=== PATIENT | female | born 1950 | race Caucasian/White ===

== ENCOUNTER 2017-03-11 00:21 | Inpatient (IN) | payer MEDICARE, BC ==
[~2017-03-11] VITALS: Ht 172.7 cm; Wt 116.9 kg
[2017-03-11] VITALS (7 sets, daily range): BP systolic 114–168; BP diastolic 64–101; PULSE 85–105; RESP 18–30; TEMP 96.2–98.2; O2SAT 84–98
[2017-03-11] MEDS ORDERED: RESP: ALBUTEROL 2.5 MG/IPRATROPIUM 0.5 MG NEB (PRN) ONE (00:27)
[2017-03-11] MEDS ORDERED: SODIUM CHLORIDE 0.9% FLUSH 10 ML FLUSH IVF PRN (00:30)
[2017-03-11] MEDS ORDERED: methylPREDNISolone SOD SUCC 125 MG/2 ML VIAL IVP ONE (00:30)
[2017-03-11 00:40] LABS: BLOOD GAS BASE EXCESS 3.4 mmol/L (-2-2); BLOOD GAS CARBOXYHEMOGLOBIN 2.1 % (0-4); BLOOD GAS HCO3 27 mmol/L (22-26); BLOOD GAS METHEMOGLOBIN 0.7 % (0-2); BLOOD GAS O2 HGB SATURATION 94 % (90-100); BLOOD GAS OXYGEN CONTENT 18.7 Vol % (12.0-20.0); BLOOD GAS PCO2 41 mmHg (38-42); BLOOD GAS PO2 85 mmHG (61-120); BLOOD GAS TOTAL HGB 14.1 G/DL (12.0-16.0); CRITICAL VALUE NO; TEMP CORR TO 98.6
[2017-03-11 00:41] LABS: DRAW SITE RT RADIAL; FIO2 100 %; LITER FLOW 15 L/M; NUMBER OF ARTERIAL PUNCTURES 1; OXYGEN DEVICE NRB; STAT YES; ULNAR PULSE PRESENT
[2017-03-11] MEDS ORDERED: MORPHINE SULFATE 4 MG/ML INJ IV PUSH ONE (00:45)
[2017-03-11] MEDS ORDERED: ONDANSETRON HCL 4 MG/2 ML VIAL IV PUSH ONE (00:45)
[2017-03-11] MEDS: RESP: ALBUTEROL 2.5 MG/IPRATROPIUM 0.5 MG NEB (SCH) INH ×2 (00:45→00:46)
[2017-03-11 00:53] LABS: I-STAT POTASSIUM 3.2 MMOL/L (3.5-4.9)
[2017-03-11 01:03] LABS: HEMATOCRIT 39.9 % (35.0-46.0); MEAN CELL VOLUME 91.9 FL (80.0-100.0); MEAN CORPUSCULAR HEMOGLOBIN 32.2 PG (27.0-34.0); PLATELET COUNT 224 TH/MM3 (150-450); PROTHROMBIN TIME - PATIENT 10.7 SEC (9.8-11.6); RED BLOOD COUNT 4.34 MIL/MM3 (4.00-5.30); RED CELL DISTRIBUTION WIDTH 13.6 % (11.6-17.2); WHITE BLOOD COUNT 15.8 TH/MM3 (4.0-11.0)
[2017-03-11 01:13] LABS: ALKALINE PHOSPHATASE 280 U/L (45-117)
[2017-03-11 01:14] LABS: HEMO FLAGS AUTO DIFF
--- NOTE | 2017-03-11 01:14 | RADRPT ---
EXAM DATE/TIME: 03/11/2017 00:41 [facility] COMPARISON: No previous studies available for comparison. INDICATIONS : Shortness of breath with heavy chest pain. MEDICAL HISTORY : None. SURGICAL HISTORY : None. ENCOUNTER: Initial ACUITY: 1 day PAIN SCORE: 9/10 LOCATION: Bilateral chest FINDINGS: A single view of the chest demonstrates the lungs to be symmetrically aerated without evidence of mas s, infiltrate or effusion. The cardiomediastinal contours are unremarkable. Osseous structures are intact. CONCLUSION: No acute disease. Santi Man MD on March 11, 2017 at 1:12 Board Certified Radiologist. This report was verified electronically.
[2017-03-11 01:19] LABS: CREATINE KINASE 100 U/L (26-192)
[2017-03-11 01:25] LABS: ALT (GPT) 216 U/L (10-53); ANION GAP 12 MEQ/L (5-15); AST (GOT) 242 U/L (15-37); BICARBONATE 25.2 MEQ/L (21.0-32.0); BLOOD UREA NITROGEN 11 MG/DL (7-18); CHLORIDE 102 MEQ/L (98-107); GLOMERULAR FILTRATION RATE 47 ML/MIN (>89); SODIUM (NA) 139 MEQ/L (136-145)
[2017-03-11] MEDS ORDERED: IOHEXOL 350 MG/ML 10 ML VIAL (for RAD DIAG) IV ONE (01:25)
[2017-03-11 01:31] LABS: POTASSIUM 3.3 MEQ/L (3.5-5.1)
--- NOTE | 2017-03-11 01:43 | RADRPT ---
EXAM DATE/TIME: 03/11/2017 01:19 [facility] COMPARISON: No previous studies available for comparison. INDICATIONS : Chest pain and shortness of breath. IV CONTRAST: 75 cc Omnipaque 350 (iohexol) IV RADIATION DOSE: 24.87 CTDIvol (mGy) MEDICAL HISTORY : Cardiovascular disease. Chronic obstructive pulmonary disease. SURGICAL HISTORY : None. ENCOUNTER: Initial ACUITY: 1 day PAIN SCALE: 0/10 LOCATION: chest TECHNIQUE: Volumetric scanning of the chest was performed using a pulmonary embolism protocol MIP images were re constructed. Using automated exposure control and adjustment of the mA and/or kV according to patien t size, radiation dose was kept as low as reasonably achievable to obtain optimal diagnostic quality images. DICOM format image data is available electronically for review and comparison. FINDINGS: PULMONARY ARTERIES: No filling defects are seen in the pulmonary arteries through the segmental level. LUNGS: There is no consolidation or pneumothorax . Peribronchial thickening and scattered densities in the l ower lobes greater the left. No concerning pulmonary nodule is visualized. PLEURAE: There is no pleural thickening or pleural effusion. MEDIASTINUM: There is good visualization of the great vessels of the middle mediastinum. Borderline prominent lymp h node in the right precarinal region measures 1.4 cm in short axis. MUSCULOSKELETAL: Within normal limits for patient age. MISCELLANEOUS: The visualized upper abdominal organs demonstrate no acute abnormality. CONCLUSION: 1. No evidence for pulmonary embolism. 2. Peribronchial thickening and scattered densities in lower lobes greater in the left lower lobe lik chele infectious. 3. Borderline prominent lymph node in the right precarinal region measures 1.4 cm in short axis. Santi Man MD on March 11, 2017 at 1:38 Board Certified Radiologist. This report was verified electronically.
[2017-03-11 01:57] LABS: BANDS 13 % (0-6); NEUTROPHIL # MANUAL DIFF 14.9 TH/MM3 (1.8-7.7); PLATELET ESTIMATE SMEAR NORMAL (NORMAL); PLATELET MORPHOLOGY NORMAL (NORMAL); POLYS (SEG NEUTROPHILS) 81 % (16-70); SCAN/DIFF FINAL DIFF MANUAL; WBC DIFF SAMPLE 100
[2017-03-11] MEDS ORDERED: ALBU6.7H INH (02:01)
[2017-03-11] MEDS ORDERED: BUME1TAB PO (02:01)
[2017-03-11] MEDS ORDERED: ERGO2000 PO (02:01)
[2017-03-11] MEDS ORDERED: VENTAER INH (02:01)
[2017-03-11] MEDS ORDERED: PANT40TA3 PO (02:01)
[2017-03-11] MEDS ORDERED: TIOT12.9 INH (02:01)
[2017-03-11] MEDS ORDERED: PIPERACIL-TAZO 4.5 GM PREMIX 100 ML IV ONE (02:15)
[2017-03-11] MEDS ORDERED: SODIUM CHLORIDE 0.9% FLUSH 10 ML FLUSH IV FLUSH PRN (02:45)
[2017-03-11] MEDS ORDERED: LACTULOSE SYRUP 20 GM/30 ML CUP PO PRN (02:45)
[2017-03-11] MEDS ORDERED: RESP: ALBUTEROL 2.5 MG/IPRATROPIUM 0.5 MG NEB (PRN) NEB (02:45)
[2017-03-11] MEDS ORDERED: Vancomycin Consult Pharmacy 1 EA OTHER SCH (02:45)
[2017-03-11] MEDS ORDERED: MAGNESIUM HYDROXIDE SUSP 30 ML CUP PO PRN (02:45)
[2017-03-11] MEDS ORDERED: POTASSIUM CHLORIDE 20 MEQ CONTROLLED RELEASE TAB PO ONE (02:45)
[2017-03-11] MEDS ORDERED: BISACODYL 10 MG SUPP RECTAL PRN (02:45)
[2017-03-11] MEDS ORDERED: MORPHINE SULFATE 4 MG/ML INJ IV PRN (02:45)
[2017-03-11] MEDS ORDERED: SENNOSIDES 8.6 MG TAB PO PRN (02:45)
[2017-03-11] MEDS ORDERED: ONDANSETRON HCL 4 MG/2 ML VIAL IVP PRN (02:45)
--- NOTE | 2017-03-11 03:04 | PD ---
HPI Chief Complaint: Respiratory Distress Time Seen by Provider: 00:24 Travel History International Travel<30 days: No Contact w/Intl Traveler<30days: No Traveled to known affect area: No History of Present Illness HPI 67-year-old female came to the emergency room with history of severe shortness of breath and hypoxia. She was brought in emergently from triage. is here with her who is giving the history. They're from [place] and they came to visit in this area. The drove for 11 hours and they reached here last Monday. Since then patient has been having some epigastric pain and shortness of breath. Today she has also been complaining of severe right upper quadrant pain along with this shortness of breath. She says the pain is worse when she takes a deep breath. also told me that she was admitted in [place] about 6 weeks ago for gallbladder stone. She did not have to take her gallbladder out but they did take the stone out. Patient appeared in severe distress. FORMERLY [facility], [facility] Past Medical History Narrative Medical List of her past medical, surgical, social and family history is reviewed from the nursing note. Asthma: Yes Cardiovascular Problems: Yes Congestive Heart Failure: Yes COPD: Yes Respiratory: Yes Immunizations Current: Yes Tetanus Vaccination: Unknown Past Surgical History Appendectomy: Yes Tonsillectomy: Yes Social History Alcohol Use: Yes Tobacco Use: No Substance Use: No Allergies-Medications (Allergen,Severity, Reaction): Coded Allergies: No Known Allergies (Unverified , 03/11/17) Comments No known drug allergies. Reported Meds & Prescriptions Reported Meds & Active Scripts Active Reported Ventolin Hfa 18 GM Inh (Albuterol Sulfate) 90 Mcg/Act Aer 2 Puff INH Q4-6H PRN Proventil Hfa 6.7 GM Inh (Albuterol Sulfate) 90 Mcg/Act Aer 2 Puff INH Q4-6H PRN Spiriva Respimat Inh (Tiotropium Inh) 2.5 Mcg/Act Aero 2 Puff INH DAILY 2.5 mcg = 1 inhalation Bumetanide 1 Mg Tab 1 Mg PO DAILY Vitamin D2 (Ergocalciferol) 2,000 Unit Tab 50,000 Units PO WEEKLY Pantoprazole (Pantoprazole Sodium) 40 Mg Tab 40 Mg PO DAILY Narrative Medication List of her home medications reviewed from the nursing note. Review of Systems Except as stated in HPI: all other systems reviewed are Neg Physical Exam Narrative GENERAL: Awake, alert, obese, severe distress SKIN: Focused skin assessment warm/dry. HEAD: Atraumatic. Normocephalic. EYES: Pupils equal and round. No scleral icterus. No injection or drainage. ENT: No nasal bleeding or discharge. Mucous membranes pink and moist. NECK: Trachea midline. No JVD. CARDIOVASCULAR: Regular rate and rhythm. No murmur appreciated. RESPIRATORY: Tachypnea, accessory muscles use for respiration, decreased air entry bilaterally GASTROINTESTINAL: Abdomen soft, non-tender, nondistended. Hepatic and splenic margins not palpable. MUSCULOSKELETAL: No obvious deformities. No clubbing. No cyanosis. No edema. NEUROLOGICAL: Awake and alert. No obvious cranial nerve deficits. Motor grossly within normal limits. Normal speech. PSYCHIATRIC: Appropriate mood and affect; insight and judgment normal. Data Data Last Documented VS Orders Complete Blood Count With Diff (03/11/17 00:24) Comprehensive Metabolic Panel (03/11/17:24) B-Type Natriuretic Peptide (03/11/17:24) Prothrombin Time / Inr (Pt) (03/11/17 00:24) Ckmb (Isoenzyme) Profile (03/11/17 00:24) Troponin I (03/11/17:24) Arterial Blood Gas (Abg) (03/11/17:24) Iv Access Insert/Monitor (03/11/17 00:24) Electrocardiogram (03/11/17 00:24) Ecg Monitoring (03/11/17 00:24) Oximetry (03/11/17:24) Oxygen Administration (03/11/17 00:24) Chest, Single Ap (03/11/17 00:24) Sodium Chloride 0.9% Flush (Ns Flush) (03/11/17 00:30) Methylprednisolone So Succ Inj (Solumedr (03/11/17 00:30) Albuterol-Ipratropium Neb (Duoneb Neb) (03/11/17 00:30) Albuterol-Ipratropium Neb (Duoneb Neb) (03/11/17 00:27) Ct Pulmonary Angiogram (03/11/17 ) Morphine Inj (Morphine Inj) (03/11/17 00:45) Ondansetron Inj (Zofran Inj) (03/11/17 00:45) I-Stat Creatinine (03/11/17 00:43) I-Stat Profile (03/11/17 00:38) Iohexol 350 Inj (Omnipaque 350 Inj) (03/11/17 01:25) Piperacil-Tazo 4.5 Gm Premix (Zosyn 4.5 (03/11/17 02:15) Blood Culture (03/11/17 02:03) Lactic Acid (03/11/17 02:03) Vancomycin Consult Pharmacy (Vancomycin (03/11/17 02:45) Albuterol-Ipratropium Neb (Duoneb Neb) (03/11/17 02:45) Budeson-Formot 160-4.5 Mg Inh (Symbicort (03/11/17 09:00) Admit To Inpatient (03/11/17 ) Vital Signs (Adult) Q4H (03/11/17 02:42) Activity Oob With Assistance (03/11/17 02:42) Intake + Output RICARDO.QSHIFT (03/11/17 02:42) Diet Regular Basic (03/11/17 Breakfast) Sodium Chlor 0.9% 1000 Ml Inj (Ns 1000 M (03/11/17 02:42) Sodium Chloride 0.9% Flush (Ns Flush) (03/11/17 02:45) Sodium Chloride 0.9% Flush (Ns Flush) (03/11/17 09:00) Ondansetron Inj (Zofran Inj) (03/11/17 02:45) Comprehensive Metabolic Panel (03/12/17 06:00) Complete Blood Count With Diff (03/12/17 06:00) Scd Bilateral/Knee High RICARDO.BID (03/11/17 02:42) [place]mar Bilateral/Knee High RICARDO.QSHIFT (03/11/17 02:42) Morphine Inj (Morphine Inj) (03/11/17 02:45) Oxycodone (Roxicodone) (03/11/17 02:45) Docusate Sodium-Senna (Yanni-Colace) (03/11/17 09:00) Magnesium Hydroxide Liq (Milk Of Magnesi (03/11/17 02:45) Sennosides (Senokot) (03/11/17 02:45) Bisacodyl Supp (Dulcolax Supp) (03/11/17 02:45) Lactulose Liq (Lactulose Liq) (03/11/17 02:45) Inpatient Certification (03/11/17 ) Potassium Chloride (Kcl) (03/11/17 02:45) Piperacil-Tazo 3.375 Gm Premix (Zosyn 3. (03/11/17 08:00) Mri Mrcp W/O Contrast (03/11/17 ) Admit Order (Ed Use Only) (03/11/17 02:47) Labs Laboratory Tests Test 03/11/17 03/11/17 03/11/17 03/11/17 00:24 00:30 00:38 02:18 Blood Gas Puncture Site RT RADIAL Blood Gas Patient Temperature 98.6 Blood Gas HCO3 27 mmol/L Blood Gas Base Excess 3.4 mmol/L Blood Gas Oxygen Saturation 94 % Arterial Blood pH 7.44 Arterial Blood Partial 41 mmHg Pressure CO2 Arterial Blood Partial 85 mmHG Pressure O2 Arterial Blood Oxygen Content 18.7 Vol % Arterial Blood 2.1 % Carboxyhemoglobin Arterial Blood Methemoglobin 0.7 % Blood Gas Hemoglobin 14.1 G/DL Oxygen Delivery Device NRB Blood Gas Liter Flow 15 L/M Blood Gas Inspired Oxygen 100 % Sodium Level 139 MEQ/L Potassium Level 3.3 MEQ/L Chloride Level 102 MEQ/L Carbon Dioxide Level 25.2 MEQ/L Anion Gap 12 MEQ/L Blood Urea Nitrogen 11 MG/DL Creatinine 1.16 MG/DL Estimat Glomerular Filtration 47 ML/MIN Rate Random Glucose 158 MG/DL Calcium Level 9.7 MG/DL Total Bilirubin 4.0 MG/DL Aspartate Amino Transf 242 U/L (AST/SGOT) Alanine Aminotransferase 216 U/L (ALT/SGPT) Alkaline Phosphatase 280 U/L Total Creatine Kinase 100 U/L Troponin I LESS THAN 0.02 NG/ML Total Protein 7.7 GM/DL Albumin 3.6 GM/DL White Blood Count 15.8 TH/MM3 Red Blood Count 4.34 MIL/MM3 Hemoglobin 14.0 GM/DL Bedside Hemoglobin 13.6 G/DL Hematocrit 39.9 % Bedside Hematocrit 40.0 % Mean Corpuscular Volume 91.9 FL Mean Corpuscular Hemoglobin 32.2 PG Mean Corpuscular Hemoglobin 35.0 % Concent Red Cell Distribution Width 13.6 % Platelet Count 224 TH/MM3 Mean Platelet Volume 7.6 FL Neutrophils (%) (Auto) % Lymphocytes (%) (Auto) % Monocytes (%) (Auto) % Eosinophils (%) (Auto) % Basophils (%) (Auto) % Neutrophils # (Auto) TH/MM3 Lymphocytes # (Auto) TH/MM3 Monocytes # (Auto) TH/MM3 Eosinophils # (Auto) TH/MM3 Basophils # (Auto) TH/MM3 CBC Comment AUTO DIFF Differential Total Cells 100 Counted Neutrophils % (Manual) 81 % Band Neutrophils % 13 % Lymphocytes % 3 % Monocytes % 3 % Neutrophils # (Manual) 14.9 TH/MM3 Differential Comment FINAL DIFF MANUAL Platelet Estimate NORMAL Platelet Morphology Comment NORMAL Prothrombin Time 10.7 SEC Prothromb Time International 1.0 RATIO Ratio Bedside Sodium 138 MMOL/L Bedside Potassium 3.2 MMOL/L Bedside Chloride 100 MMOL/L Bedside Blood Urea Nitrogen 11 MG/DL Bedside Creatinine 1.0 MG/DL Bedside Glucose 169 MG/DL B-Type Natriuretic Peptide 33 PG/ML Lactic Acid Level 1.9 mmol/L [facility] Medical Decision Making Medical Screen Exam Complete: Yes Emergency Medical Condition: Yes Medical Record Reviewed: Yes Interpretation(s) Twelve-lead EKG was reviewed by me. Normal sinus rhythm, normal axis, nonspecific ST-T wave changes. Heart rate of 88 bpm. Differential Diagnosis PE, ACS, non-STEMI, acute cholecystitis Narrative Course 2:53 AM patient was given 3 duo nebs [id number] given her history of COPD. Blood gas was done and showed some hypoxia but otherwise within normal limits. The respiratory distress improved significantly. Given her recent past history of travel for many hours my concern was PE given the hypoxia and the pleuritic chest pain. CT pulmonary angiogram was ordered which came back negative read by the radiologist for PE. However her blood test results came back and she has leukocytosis with significant bandemia and elevated LFTs. Given all these findings my suspicion is for ascending cholangitis and I ordered an MRCP as well as I have started her on Zosyn and discussed the case with DEN Eldridge. GI was okay with that plan. They wanted the patient to be admitted to medical service. Currently patient is on a nasal cannula and her respiratory effort is much improved. Oxygen saturation is much better. I'm comfortable admitting her to the regular med surge floor. I discussed the case with the hospitalist was accepted it. Awaiting for the MRCP. Lactic acid came back and within normal range. Critical Care Narrative Aggregate critical care time was 60 minutes. Time to perform other separately billable procedures was not included in the critical care time. My time did not include minutes spent treating any other patients simultaneously or on activities that did not directly contribute to the patient's treatment. The services I provided to this patient were to treat and/or prevent clinically significant deterioration that could result in: Respiratory distress, hypoxia, acute COPD exacerbation, ascending cholangitis, sepsis I provided critical care services requiring my management, as noted below: Chart data review, documentation time, medication orders and management, vital sign assessments/reviewing monitor data, ordering and reviewing lab tests, ordering and interpreting/reviewing x-rays and diagnostic studies, care of the patient and discussion of the patient with the admitting physicians. Procedures EKG Prior to Arrival: No Physician Communication Physician Communication Dr. Radford, Diagnosis Primary Impression: Sepsis Qualified Code: A41.9 - Sepsis, due to unspecified organism Additional Impressions: Ascending cholangitis Respiratory distress Acute exacerbation of chronic obstructive pulmonary disease (COPD) Hypoxia Admitting Information Admitting Physician Requests: Admit Scripts Oxygen tank 1 Ea Tank #2 Liter [email or web address].[email or web address] Continuous Oxygen Concentrator Portable Gaseous 2 L/min via Nasal Cannula Continuous For 99 months Prov:Blayne Yao MD 03/13/17 Metronidazole (Flagyl)500 Mg [id number] Mg PO TID 10 Days Ref 0 Prov:Blayne Yao MD 03/13/17 Levofloxacin (Levaquin)500 Mg [id number] Mg PO DAILY 10 Days Ref 0 Prov:Blayne Yao MD 03/13/17 Prednisone 5 Mg Tab5 Mg PO DIRECTED 10 Days Ref 0 40 mg po daily for two days then 30 mg po daily for two days then 20 mg po daily for two days then 10 mg po daily for two days then 5 mg po daily for two days then stop. Prov:Blayne Yao MD 03/13/17 Budesonide-Formoterol Inh (Symbicort Inh)160-4.5 Mcg/Act Aero2 Puff INH Q12HR # 1 INHALER Ref 0 Prov:Blayne Yao MD 03/13/17 Tavia Quinones MD Mar 11, 2017 03:04
[2017-03-11] MEDS ORDERED: VANCOMYCIN INJ 1,800 MG in SODIUM CHLORID 0.9% 500 ML INJ 500 ML IV SCH (04:00)
--- NOTE | 2017-03-11 04:03 | HHI.HP ---
[facility] No Primary Care Physician Admission Diagnosis ascending cholangitis, sepsis, shortness of breath, hypoxia Diagnoses: (1) COPD (chronic obstructive pulmonary disease) Diagnosis: Principal (2) Hypoxia Diagnosis: Principal (3) PNA (pneumonia) Diagnosis: Principal (4) Ascending cholangitis Diagnosis: Principal (5) Renal insufficiency Diagnosis: Principal (6) Hypokalemia Diagnosis: Principal Travel History International Travel<30 Days: No Contact w/Intl Traveler <30 Da: No Traveled to Known Affected Are: No History of Present Illness This is a 67-year-old female with a PMH of HTN, COPD, CHF (Unknown EF) and h/o Cholelithiasis who presented to the ER with complaints of severe SOB which started acutely this evening. Patient and are visiting from [place] , reports progressive SOB after driving from [place] 2 days ago. No chest pain or cough reported. Today, pt w/ c/o acute SOB and epigastric/RUQ pain. Per , pt recently hospitalized in [place] approx 2 mo ago for similar complaints, found to have gallstone and underwent stone extraction. Has been doing well since then up until now. On arrival, BP 168/101, HR 98, O2 sat 85% on an RM, Afebrile. Currently on 2L NC w/ O2 sat 98%. WBC 15.8. Bands 13. K+ 3.2. Creatinine 1.16, no previous labs for comparison. LFTs elevated, no previous labs for comparison. INR 1.0. CXR with no acute disease. CTA Pulm negative for PE, peribronchial thickening and scattered densities lower lobes likely infectious. S/p Solu-Medrol and Zosyn in ER. GI consulted by ER physician, recommended MRCP. Review of Systems Except as stated in HPI: all other systems reviewed are Neg ROS: 14 point review of systems otherwise negative. Past Family Social History Past Medical History PMH: HTN, COPD, CHF (Unknown EF) and h/o Cholelithiasis Past Surgical History PAST SURGICAL HISTORY: Appendectomy, Tonsillectomy Allergies: Coded Allergies: No Known Allergies (Unverified , 03/11/17) Family History PAST FAMILY HISTORY: Reviewed. No h/o DM or CAD Social History PAST SOCIAL HISTORY: Occasional alcohol. Negative for tobacco or drugs. Physical Exam Vital Signs Vital Signs Date Time Temp Pulse Resp B/P Pulse Ox O2 Delivery O2 Flow Rate FiO2 03/11/17 01:08 105 20 145/73 98 Aerosol Mask 03/11/17 00:25 103 22 98 Aerosol Mask 03/11/17 00:25 95 Aerosol Mask 03/11/17 00:25 28 98 Non-Rebreather 15 03/11/17 00:25 98.2 98 30 168/101 85 Physical Exam PE: GENERAL: Pleasant middle-aged white female in no acute distress. HEENT: PERRLA, EOMI. No scleral icterus or conjunctival pallor. No lid lag or facial droop. CARDIOVASCULAR: Regular rate and rhythm. No obvious murmurs to auscultation. No chest tenderness to palpation. RESPIRATORY: No obvious rhonchi or wheezing. Clear to auscultation. Breath sounds equal bilaterally. GASTROINTESTINAL: Abdomen soft, mild tenderness to palpation RUQ, nondistended. BS normal. MUSCULOSKELETAL: Extremities without clubbing, cyanosis, or edema. No obvious deformities. NEUROLOGICAL: Awake, alert and oriented x4. No focal neurologic deficits. Moving both upper and lower extremities spontaneously. Laboratory Laboratory Tests Test 03/11/17 03/11/17 03/11/17 03/11/17 00:24 00:30 00:38 02:18 Blood Gas Puncture Site RT RADIAL Blood Gas Patient Temperature 98.6 Blood Gas HCO3 27 Blood Gas Base Excess 3.4 Blood Gas Oxygen Saturation 94 Arterial Blood pH 7.44 Arterial Blood Partial 41 Pressure CO2 Arterial Blood Partial 85 Pressure O2 Arterial Blood Oxygen Content 18.7 Arterial Blood 2.1 Carboxyhemoglobin Arterial Blood Methemoglobin 0.7 Blood Gas Hemoglobin 14.1 Oxygen Delivery Device NRB Blood Gas Liter Flow 15 Blood Gas Inspired Oxygen 100 Sodium Level 139 Potassium Level 3.3 Chloride Level 102 Carbon Dioxide Level 25.2 Anion Gap 12 Blood Urea Nitrogen 11 Creatinine 1.16 Estimat Glomerular Filtration 47 Rate Random Glucose 158 Calcium Level 9.7 Total Bilirubin 4.0 Aspartate Amino Transf 242 (AST/SGOT) Alanine Aminotransferase 216 (ALT/SGPT) Alkaline Phosphatase 280 Total Creatine Kinase 100 Troponin I LESS THAN 0.02 Total Protein 7.7 Albumin 3.6 White Blood Count 15.8 Red Blood Count 4.34 Hemoglobin 14.0 Bedside Hemoglobin 13.6 Hematocrit 39.9 Bedside Hematocrit 40.0 Mean Corpuscular Volume 91.9 Mean Corpuscular Hemoglobin 32.2 Mean Corpuscular Hemoglobin 35.0 Concent Red Cell Distribution Width 13.6 Platelet Count 224 Mean Platelet Volume 7.6 Neutrophils (%) (Auto) Lymphocytes (%) (Auto) Monocytes (%) (Auto) Eosinophils (%) (Auto) Basophils (%) (Auto) Neutrophils # (Auto) Lymphocytes # (Auto) Monocytes # (Auto) Eosinophils # (Auto) Basophils # (Auto) CBC Comment AUTO DIFF Differential Total Cells 100 Counted Neutrophils % (Manual) 81 Band Neutrophils % 13 Lymphocytes % 3 Monocytes % 3 Neutrophils # (Manual) 14.9 Differential Comment FINAL DIFF MANUAL Platelet Estimate NORMAL Platelet Morphology Comment NORMAL Prothrombin Time 10.7 Prothromb Time International 1.0 Ratio Bedside Sodium 138 Bedside Potassium 3.2 Bedside Chloride 100 Bedside Blood Urea Nitrogen 11 Bedside Creatinine 1.0 Bedside Glucose 169 B-Type Natriuretic Peptide 33 Lactic Acid Level 1.9 Date/Time Procedure Status Source Growth 03/11/17 02:20 Aerobic Blood Culture Received Blood Peripheral Pending 03/11/17 02:20 Anaerobic Blood Culture Received Blood Peripheral Pending Result Diagram: 03/11/17 0038 03/11/17 0030 Assessment and Plan Problem List: (1) COPD (chronic obstructive pulmonary disease) ICD Code: J44.9 Status: Acute (2) PNA (pneumonia) ICD Code: J18.9 Status: Acute (3) Hypoxia ICD Code: R09.02 Status: Acute (4) Ascending cholangitis ICD Code: K83.0 Status: Acute (5) Renal insufficiency ICD Code: N28.9 Status: Acute (6) Hypokalemia ICD Code: E87.6 Status: Acute Assessment and Plan A/P: 1. Hypoxia: Multifactorial-COPD/PNA. O2 sat 85% on NRM, currently weaned down to 2L NC w/ O2 sat 98%. 2. COPD: Chronic Respiratory Failure w/ Acute Exacerbation, s/p Solu-Medrol in ER, continue w/ Solu-Medrol, DuoNeb, Symbicort. Will monitor O2. 3. PNA: CXR w/ no acute disease, CTA Pulm w/ no evidence of PE, peribronchial thickening and scattered densities likely infectious, images reviewed by me. Caitie/Ricky. 4. Cholangitis: Acute onset of RUQ pain, h/o cholelithiasis s/p stone extraction in [place] approx 6wks ago, now w/ recurrent pain complaints. LFTs elevated, no previous labs for comparison. GI consulted by ER physician, MRCP recommended. Will follow, analgesics/antiemetics as needed. 5. Renal Insufficiency: Creatinine 1.16, no previous labs for comparison. BUN /Creatinine normal. IVF for hydration, repeat labs in a.m. 6. Hypokalemia: K+ 3.2, will replace and recheck in a.m. 7. DVT Prophylaxis: SCD/teds. 8. wash worker DC planning as needed. 9. Case discussed at length with ER physician. Physician Certification 2 Midnight Certification Type: Admission for Inpatient Services Order for Inpatient Services The services are ordered in accordance with Medicare regulations or non- Medicare payer requirements, as applicable. In the case of services not specified as inpatient-only, they are appropriately provided as inpatient services in accordance with the 2-midnight benchmark. Estimated LOS (days): 2 days is the estimated time the patient will need to remain in the hospital, assuming treatment plan goals are met and no additional complications. Post-Hospital Plan: Not yet determined Comfort Brandt MD Mar 11, 2017 04:03
[2017-03-11] MEDS: SODIUM CHLOR 0.9% 1000 ML INJ 1,000 ML IV SCH ×3 (04:08→21:24)
--- NOTE | 2017-03-11 04:36 | RADRPT ---
EXAM DATE/TIME: 03/11/2017 03:11 [facility] COMPARISON: No previous studies available for comparison. INDICATIONS : Obstruction. MEDICAL HISTORY : Chronic obstructive pulmonary disease. SURGICAL HISTORY : Tonsillectomy. Appendectomy. ENCOUNTER: Initial ACUITY: 2 months PAIN SCORE: 7/10 LOCATION: Bilateral upper quadrant TECHNIQUE: Multiplanar, multisequence magnetic resonance imaging of the abdomen was performed. High-resolution 3D dataset was utilized to reconstruct maximum-intensity projection (MIP) images. FINDINGS: INTRAHEPATIC BILE DUCTS: Within normal limits. No significant anatomical variant is present. EXTRAHEPATIC BILE DUCTS: The common bile duct measures 11 mm. No stone or filling defect is identified. GALLBLADDER: No stones, wall thickening, or pericholecystic fluid. There is mild dilatation. LIVER: Normal size and signal intensity. No concerning liver lesion is identified on this non-contrast exam. PANCREAS: The main pancreatic duct is normal in size. There is no significant anatomical variant. Signal inte nsity is within normal limits. No mass is visualized on this non-contrast exam. OTHER: The remaining visualized structures demonstrate no acute abnormality on this non-contrast exam. CONCLUSION: 1. There is mild dilatation of the gallbladder. No evidence for cholelithiasis. 2. There is dilatation of the common bile duct measuring 11 mm. No definite mass or filling defect se en. Distal obstructing lesion cannot be excluded. ERCP may be warranted. 3. Main pancreatic duct is normal. Santi Man MD on March 11, 2017 at 4:31 Board Certified Radiologist. This report was verified electronically.
[2017-03-11] MEDS: methylPREDNISolone SOD SUCC 40 MG/1 ML VIAL IV PUSH SCH ×3 (05:13→17:58)
--- NOTE | 2017-03-11 08:10 | HHI.PR ---
Subjective Remarks in no acute distress. says that her sob and abdominal pain is somewhat better. no nausea/ vomiting or fever. Objective Vitals Vital Signs Date Time Temp Pulse Resp B/P Pulse Ox O2 Delivery O2 Flow Rate FiO2 03/11/17 04:47 97.5 102 20 128/75 95 03/11/17 01:08 105 20 145/73 98 Aerosol Mask 03/11/17 00:25 103 22 98 Aerosol Mask 03/11/17 00:25 95 Aerosol Mask 03/11/17 00:25 28 98 Non-Rebreather 15 03/11/17 00:25 98.2 98 30 168/101 85 I/O 03/10/17 03/10/17 03/10/17 03/11/17 03/11/17 03/11/17 07:00 15:00 23:00 07:00 15:00 23:00 Intake Total 561 ml Output Total 0 ml Balance 561 ml Intake Oral 240 ml IV Total 321 ml Output Urine Total 0 ml Result Diagram: 03/11/17 0038 03/11/17 0030 Imaging Last Impressions Chest X-Ray 03/11/17 0024 Signed Impressions: Service Date/Time: Saturday, March 11, 2017 00:41 - CONCLUSION: No acute disease. Santi Man MD Cholangiopancreatography MRI 03/11/17 0000 Signed Impressions: Service Date/Time: Saturday, March 11, 2017 03:11 - CONCLUSION: 1. There is mild dilatation of the gallbladder. No evidence for cholelithiasis. 2. There is dilatation of the common bile duct measuring 11 mm. No definite mass or filling defect seen. Distal obstructing lesion cannot be excluded. ERCP may be warranted. 3. Main pancreatic duct is normal. Santi Man MD CT Angiography 03/11/17 0000 Signed Impressions: Service Date/Time: Saturday, March 11, 2017 01:19 - CONCLUSION: 1. No evidence for pulmonary embolism. 2. Peribronchial thickening and scattered densities in lower lobes greater in the left lower lobe likely infectious. 3. Borderline prominent lymph node in the right precarinal region measures 1.4 cm in short axis. Santi Man MD Objective Remarks GENERAL: This is a well-nourished, well-developed patient, in no apparent distress. CARDIOVASCULAR: Regular rate and regular rhythm without murmurs, gallops, or rubs. RESPIRATORY: Clear to auscultation. Breath sounds equal bilaterally. No wheezes , rales, or rhonchi. GASTROINTESTINAL: Abdomen soft, mild generalized tenderness, nondistended. Normal, active bowel sounds MUSCULOSKELETAL: Extremities without clubbing, cyanosis, or edema. NEURO: Alert & Oriented x4 to person, place, time, situation. Moves all ext x4 Procedures none Medications and IVs Current Medications Sodium Chloride (NS Flush) 2 ml UNSCH PRN IVF FLUSH AFTER USING IV ACCESS; Start 03/11/17 at 00:30 Methylprednisolone Sodium Succinate (SoluMEDROL INJ) 125 mg ONCE ONCE IVP Last administered on 03/11/17 01:05; Start 03/11/17 at 00:30; Stop 03/11/17 at 00:31; Status DC Albuterol/ Ipratropium (Duoneb Neb) 1 ampule Q15M INH Last administered on 03/11 00:46; Start 03/11/17 at 00:30; Stop 03/11/17 at 01:01; Status DC Albuterol/ Ipratropium (Duoneb Neb) 3 ampule STK-MED ONCE .ROUTE ; Start at 00:27; Stop 03/11/17 at 00:28; Status DC Morphine Sulfate (Morphine Inj) 4 mg ONCE ONCE IV PUSH Last administered on 01:05; Start 03/11/17 at 00:45; Stop 03/11/17 at 00:46; Status DC Ondansetron HCl (Zofran Inj) 4 mg ONCE ONCE IV PUSH Last administered on 01:06; Start 03/11/17 at 00:45; Stop 03/11/17 at 00:46; Status DC Iohexol 75 ml 75 ml STK-MED ONCE IV Last administered on 03/11/17 01:25; Start 03/11/17 at 01:25; Stop 03/11/17 at 01:26; Status DC Piperacillin Sod/ Tazobactam Sod 100 ml @ 200 mls/hr ONCE ONCE IV Last administered on 03/11/17 02:14; Start 03/11/17 at 02:15; Stop 03/11/17 at 02:44 ; Status DC Pharmacy Profile Note 0 ml @ 0 mls/hr UNSCH OTHER ; Start 03/11/17 at 02:45 Piperacillin Sod/ Tazobactam Sod (Zosyn 3.375 Gm Premix) 50 ml @ 100 mls/hr Q6H IV ; Start 03/11/17 at 08:00 Albuterol/ Ipratropium (Duoneb Neb) 1 ampule Q4HR NEB PRN NEB SOB/WHEEZING; Start 03/11/17 at 02:45 Budesonide/ Formoterol Fumarate 2 puff 2 puff Q12HR INH ; Start 03/11/17 at 09: 00 Sodium Chloride (NS 1000 ml Inj) 1,000 ml @ 100 mls/hr Q10H IV Last administered on 03/11/17t 04:08; Start 03/11/17 at 02:42 Sodium Chloride (NS Flush) 2 ml UNSCH PRN IV FLUSH FLUSH AFTER USING IV ACCESS ; Start 03/11/17 at 02:45 Sodium Chloride (NS Flush) 2 ml BID IV FLUSH ; Start 03/11/17 at 09:00 Ondansetron HCl (Zofran Inj) 4 mg Q6H PRN IVP NAUSEA OR VOMITING; Start at 02:45 Morphine Sulfate (Morphine Inj) 2 mg Q3H PRN IV Pain 6-10; Start 03/11/17 at 02 :45 Oxycodone HCl (Roxicodone) 5 mg Q4H PRN PO PAIN SCALE 3 TO 5; Start 03/11/17 at 02:45 Senna/Docusate Sodium (Yanni-Colace) 1 tab BID PO ; Start 03/11/17 at 09:00 Magnesium Hydroxide (Milk Of Magnesia Liq) 30 ml Q12H PRN PO MILD - MODERATE CONSTIPATION; Start 03/11/17 at 02:45 Sennosides (Senokot) 17.2 mg Q12H PRN PO MODERATE - SEVERE CONSTIPATION; Start 03/11/17 at 02:45 Bisacodyl (Dulcolax Supp) 10 mg DAILY PRN RECTAL SEVERE CONSITIPATION; Start at 02:45 Lactulose (Lactulose Liq) 30 ml DAILY PRN PO SEVERE CONSITIPATION; Start at 02:45 Potassium Chloride 40 meq 40 meq ONCE ONCE PO Last administered on 03/11/17 04:08; Start 03/11/17 at 02:45; Stop 03/11/17 at 02:57; Status DC Vancomycin HCl/ Sodium Chloride (Vancomycin Inj/ NS 500 ml Inj) 518 ml @ 250 mls/hr DAILY@04 IV Last administered on 03/11/17 05:12; Start 03/11/17 at 04: 00; Stop 03/11/17 at 07:00; Status DC Methylprednisolone Sodium Succinate (SoluMEDROL INJ) 40 mg Q6HR IV PUSH Last administered on 03/11/17 05:13; Start 03/11/17 at 06:00 Bumetanide (Bumetanide) 1 mg DAILY PO ; Start 03/11/17 at 09:00 A/P Assessment and Plan A/P 1. acute respiratory failure due to COPD exacerbation and bibasilar pneumonia. continue with IV antibiotic and IOV steroid- keep on oxygen to keep O2 sat > 90%- continue with neb treatment- follow the cultures. 2. elevated LFT's- patient had recent biliary stone removal MRCP with dilatation of the common bile duct- GI consulted- 3. Hypokalemia: replaced. 4. DVT Prophylaxis: SCD/teds. Blayne Yao MD Mar 11, 2017 08:10
[2017-03-11] MEDS: SODIUM CHLORIDE 0.9% FLUSH 10 ML FLUSH IV FLUSH SCH ×2 (09:00→21:00)
[2017-03-11] MEDS: BUDESONIDE-FORMOTEROL 160/4.5 MCG INHALER INH SCH ×2 (09:37→21:00)
[2017-03-11] MEDS: BUMETANIDE 1 MG TAB PO SCH (09:37)
[2017-03-11] MEDS: PIPERACIL-TAZO 3.375 GM PREMIX 50 ML IV SCH ×3 (09:37→21:17)
[2017-03-11] MEDS: DOCUSATE SODIUM 50 MG/SENNA 8.6 MG TAB PO SCH ×2 (09:37→21:17)
--- NOTE | 2017-03-11 12:13 | EKG ---
Date Performed: 03/11/2017 Time Performed: 00:29:42 PTAGE: 67 years EKG: Sinus rhythm NORMAL ECG NO PREVIOUS TRACING DOCTOR: Alin Paige Interpretating Date/Time 03/11/2017 12:11:54
--- NOTE | 2017-03-11 14:26 | PD.PN.STU ---
Subjective Remarks S: Patient is a 67 year old female who presents today for GI consult She was admitted early this morning with a working diagnosis of ascending cholangitis, sepsis, shortness of breath, and hypoxia. Patient explains that the abdominal pain came on monday night after eating dinner. She described the pain as sharp, 10/10 and felt it across her mid abdomen as well as the right side of her mid back. She also notes that she was vomiting clear bile, with no signs of blood. She does not recall whether she had a fever or not. Right now, she says the pain is better grading it as a 4/10, and describes the pain as more dull, rather than sharp. She has been able to eat a little bit, and said that eating didn't make the pain any worse or better. She has not had any bowel movements since her arrival. She currently denies any nausea, vomiting, fever, chills, or dysphagia. She also denies headaches, chest pains, or SOB. Remianing ROS unremarkable PMH: HTN, COPD, CHF, cholelithiasis with ERCP and stone removal done about a month ago. PSHx: appendectomy and tonsillectomy SH: occasional alcohol use, 3-4 drinks a night this weekend; no tobacco or drug use no significant family history NKDA Objective Vitals Vital Signs Date Time Temp Pulse Resp B/P Pulse Ox O2 Delivery O2 Flow Rate FiO2 03/11/17 12:00 97.0 88 18 121/68 84 03/11/17 08:00 97.6 96 18 124/69 91 03/11/17 04:47 97.5 102 20 128/75 95 03/11/17 01:08 105 20 145/73 98 Aerosol Mask 03/11/17 00:25 103 22 98 Aerosol Mask 03/11/17 00:25 95 Aerosol Mask 03/11/17 00:25 28 98 Non-Rebreather 15 03/11/17 00:25 98.2 98 30 168/101 85 I/O 03/10/17 03/10/17 03/10/17 03/11/17 03/11/17 03/11/17 07:00 15:00 23:00 07:00 15:00 23:00 Intake Total 561 ml Output Total 0 ml Balance 561 ml Intake Oral 240 ml IV Total 321 ml Output Urine Total 0 ml O: General: WDWN, positive affect and behavior HEENT: negative Neck: supple (-) LAD Heart: RRR nl S1, S2, no murmurs rubs or gallps Lungs: clear to auscultation Abdomen: soft, mildly tender across the epigastric, and RLQ region. noted tenderness across right mid back region. no HSM or masses appreciated. normal bowel sounds Ext: no edema or cyanosis Neuro: alert and oriented x 3; no focal deficits Result Diagram: 03/11/17 0038 03/11/17 0030 Other Results Laboratory Tests Test 03/11/17 03/11/17 03/11/17 00:24 00:30 00:38 Blood Gas HCO3 27 mmol/L (22-26) Blood Gas Base Excess 3.4 mmol/L (-2-2) Arterial Blood pH 7.44 (7.380-7.420) Potassium Level 3.3 MEQ/L (3.5-5.1) Creatinine 1.16 MG/DL (0.50-1.00) Estimat Glomerular Filtration 47 ML/MIN (>89) Rate Random Glucose 158 MG/DL (74-106) Total Bilirubin 4.0 MG/DL (0.2-1.0) Aspartate Amino Transf 242 U/L (15-37) (AST/SGOT) Alanine Aminotransferase 216 U/L (10-53) (ALT/SGPT) Alkaline Phosphatase 280 U/L (45-117) Troponin I LESS THAN 0.02 NG/ML (0.02-0.05) White Blood Count 15.8 TH/MM3 (4.0-11.0) Neutrophils % (Manual) 81 % (16-70) Band Neutrophils % 13 % (0-6) Lymphocytes % 3 % (9-44) Neutrophils # (Manual) 14.9 TH/MM3 (1.8-7.7) Bedside Potassium 3.2 MMOL/L (3.5-4.9) Bedside Glucose 169 MG/DL (60-95) Imaging Last 72 hours Impressions Chest X-Ray 03/11/17 0024 Signed Impressions: Service Date/Time: Saturday, March 11, 2017 00:41 - CONCLUSION: No acute disease. Santi Man MD Cholangiopancreatography MRI 03/11/17 0000 Signed Impressions: Service Date/Time: Saturday, March 11, 2017 03:11 - CONCLUSION: 1. There is mild dilatation of the gallbladder. No evidence for cholelithiasis. 2. There is dilatation of the common bile duct measuring 11 mm. No definite mass or filling defect seen. Distal obstructing lesion cannot be excluded. ERCP may be warranted. 3. Main pancreatic duct is normal. Santi Man MD CT Angiography 03/11/17 0000 Signed Impressions: Service Date/Time: Saturday, March 11, 2017 01:19 - CONCLUSION: 1. No evidence for pulmonary embolism. 2. Peribronchial thickening and scattered densities in lower lobes greater in the left lower lobe likely infectious. 3. Borderline prominent lymph node in the right precarinal region measures 1.4 cm in short axis. Santi Man MD Medications and IVs Current Medications Medications (Trade) Dose Ordered Sig/Wendy Route Start Time Stop Time Status Last Admin Sodium Chloride 2 ml 2 ml UNSCH PRN IVF 03/11/17 00:30 Pharmacy Profile Note 0 ml @ 0 mls/hr UNSCH OTHER 03/11/17 02:45 (Zosyn 3.375 Gm Premix) 50 ml @ 100 mls/hr Q6H IV 03/11/17 08:00 03/11/17 09:37 Budesonide/ Formoterol Fumarate 2 puff 2 puff Q12HR INH 03/11/17 09:00 03/11/17 09:37 (NS 1000 ml Inj) 1,000 ml @ 100 mls/hr Q10H IV 03/11/17 02:42 03/11/17 04:08 (NS Flush) 2 ml UNSCH PRN IV FLUSH 03/11/17 02:45 (NS Flush) 2 ml BID IV FLUSH 03/11/17 09:00 (Zofran Inj) 4 mg Q6H PRN IVP 03/11/17 02:45 (Morphine Inj) 2 mg Q3H PRN IV 03/11/17 02:45 (Roxicodone) 5 mg Q4H PRN PO 03/11/17 02:45 (Yanni-Colace) 1 tab BID PO 03/11/17 09:00 03/11/17 09:37 (Milk Of Magnesia Liq) 30 ml Q12H PRN PO 03/11/17 02:45 (Senokot) 17.2 mg Q12H PRN PO 03/11/17 02:45 (Dulcolax Supp) 10 mg DAILY PRN RECTAL 03/11/17 02:45 (Lactulose Liq) 30 ml DAILY PRN PO 03/11/17 02:45 (SoluMEDROL INJ) 40 mg Q6HR IV PUSH 03/11/17 06:00 03/11/17 12:49 Bumetanide 1 mg 1 mg DAILY PO 03/11/17 09:00 03/11/17 09:37 (Vancomycin Inj/ NS 500 ml Inj) 517.5 ml @ 250 mls/hr Q24H IV 03/12/17 04:00 Miscellaneous Information SPECIFIC LAB TO BE DRAWN:VA... ONCE ONCE .XX 03/14/17 03:45 03/14/17 03:46 A/P Assessment and Plan A: abdominal pain, elevated LFTs and elevated WBC, abnormal MRCP with dilation of biliary tree. 1. possible Ascending cholangitis with possible secondary sepsis: improving 2. possible biliary tract obstruction 3. possible cholecystitis, also patient drinks heavily so it could be ETOH hepatitis P: 1. monitor LFT's. 2. If LFT's still remain elevated tomorrow, go forth with plan to do ERCP. If LFT's decrease and the patient is feeling better, ERCP not indicated 3. Patient is from out of town, so f/u with meter and service line inspector at home about possible laproscopic gallbladder removal Yas Barr M3 Mar 11, 2017 14:26 Annalisa Vee MD Mar 11, 2017 17:37
[2017-03-12] VITALS: BP 113/60; PULSE 87; RESP 20; TEMP 98.2; O2SAT 92
[2017-03-12] MEDS: PIPERACIL-TAZO 3.375 GM PREMIX 50 ML IV SCH ×4 (02:09→20:18)
[2017-03-12] MEDS ORDERED: VANCOMYCIN INJ 1,750 MG in SODIUM CHLORID 0.9% 500 ML INJ 500 ML IV SCH ×2 (04:00→22:00)
[2017-03-12] MEDS: methylPREDNISolone SOD SUCC 40 MG/1 ML VIAL IV PUSH SCH ×4 (05:20→21:46)
[2017-03-12 06:17] LABS: AUTOMATED NEUTROPHIL # 11.4 TH/MM3 (1.8-7.7); BASOPHIL % 0.3 % (0.0-2.0); HEMATOCRIT 36.8 % (35.0-46.0); HEMO FLAGS DIFF FINAL; LYMPH % 4.2 % (9.0-44.0); LYMPHOCYTE # 0.5 TH/MM3 (1.0-4.8); MEAN CELL VOLUME 95.1 FL (80.0-100.0); MEAN CORPUSCULAR HEMOGLOBIN 32.5 PG (27.0-34.0); MEAN CORPUSCULAR HGB CONC 34.2 % (32.0-36.0); MONO % 2.4 % (0.0-8.0); NEUT % 93.1 % (16.0-70.0); PLATELET COUNT 207 TH/MM3 (150-450); RED BLOOD COUNT 3.87 MIL/MM3 (4.00-5.30); RED CELL DISTRIBUTION WIDTH 13.3 % (11.6-17.2); WHITE BLOOD COUNT 12.2 TH/MM3 (4.0-11.0)
[2017-03-12] MEDS: SODIUM CHLOR 0.9% 1000 ML INJ 1,000 ML IV SCH ×2 (06:42→18:41)
[2017-03-12 06:56] LABS: ALKALINE PHOSPHATASE 203 U/L (45-117); ALT (GPT) 237 U/L (10-53); ANION GAP 9 MEQ/L (5-15); AST (GOT) 145 U/L (15-37); BICARBONATE 27.7 MEQ/L (21.0-32.0); BLOOD UREA NITROGEN 16 MG/DL (7-18); CHLORIDE 103 MEQ/L (98-107); GLOMERULAR FILTRATION RATE 45 ML/MIN (>89); POTASSIUM 4.2 MEQ/L (3.5-5.1); SODIUM (NA) 140 MEQ/L (136-145); TOTAL BILIRUBIN ADULT 1.2 MG/DL (0.2-1.0)
[2017-03-12 08:00] VITALS: BP 176/94; PULSE 63; RESP 19; TEMP 95.7; O2SAT 91
[2017-03-12] MEDS: SODIUM CHLORIDE 0.9% FLUSH 10 ML FLUSH IV FLUSH SCH ×2 (08:00→20:19)
[2017-03-12] MEDS: BUDESONIDE-FORMOTEROL 160/4.5 MCG INHALER INH SCH ×2 (08:24→20:24)
[2017-03-12] MEDS: DOCUSATE SODIUM 50 MG/SENNA 8.6 MG TAB PO SCH ×2 (08:24→20:20)
[2017-03-12] MEDS: BUMETANIDE 1 MG TAB PO SCH (08:24)
--- NOTE | 2017-03-12 09:51 | HHI.PR ---
Subjective Remarks f/u; COPD exacerbation/ elevated LFT's sob and cough has improved. has mild lower abdominal pain but no nausea, vomiting or fever. Objective Vitals Vital Signs Date Time Temp Pulse Resp B/P Pulse Ox O2 Delivery O2 Flow Rate FiO2 03/12/17 00:00 98.2 87 20 113/60 92 03/11/17 20:00 97.0 85 20 126/64 92 03/11/17 16:00 96.2 92 18 114/64 90 03/11/17 12:00 97.0 88 18 121/68 84 I/O 03/11/17 03/11/17 03/11/17 03/12/17 03/12/17 03/12/17 07:00 15:00 23:00 07:00 15:00 23:00 Intake Total 561 ml 620 ml 906 ml 902 ml Output Total 0 ml 200 ml Balance 561 ml 620 ml 706 ml 902 ml Intake Oral 240 ml 620 ml IV Total 321 ml 906 ml 902 ml Output Urine Total 0 ml 200 ml # Voids 2 # Bowel Movements 0 0 Result Diagram: 03/12/17 0510 03/12/17 0510 Imaging Last Impressions Chest X-Ray 03/11/17 0024 Signed Impressions: Service Date/Time: Saturday, March 11, 2017 00:41 - CONCLUSION: No acute disease. Santi Man MD Cholangiopancreatography MRI 03/11/17 0000 Signed Impressions: Service Date/Time: Saturday, March 11, 2017 03:11 - CONCLUSION: 1. There is mild dilatation of the gallbladder. No evidence for cholelithiasis. 2. There is dilatation of the common bile duct measuring 11 mm. No definite mass or filling defect seen. Distal obstructing lesion cannot be excluded. ERCP may be warranted. 3. Main pancreatic duct is normal. Santi Man MD CT Angiography 03/11/17 0000 Signed Impressions: Service Date/Time: Saturday, March 11, 2017 01:19 - CONCLUSION: 1. No evidence for pulmonary embolism. 2. Peribronchial thickening and scattered densities in lower lobes greater in the left lower lobe likely infectious. 3. Borderline prominent lymph node in the right precarinal region measures 1.4 cm in short axis. Santi Man MD Objective Remarks GENERAL: This is a well-nourished, well-developed patient, in no apparent distress. CARDIOVASCULAR: Regular rate and regular rhythm without murmurs, gallops, or rubs. RESPIRATORY: diminished air entry in bases GASTROINTESTINAL: Abdomen soft, mild generalized tenderness, nondistended. Normal, active bowel sounds MUSCULOSKELETAL: Extremities without clubbing, cyanosis, or edema. NEURO: Alert & Oriented x4 to person, place, time, situation. Moves all ext x4 psych; somewhat anxious but in good spirit Procedures none Medications and IVs Current Medications Sodium Chloride (NS Flush) 2 ml UNSCH PRN IVF FLUSH AFTER USING IV ACCESS; Start 03/11/17 at 00:30 Methylprednisolone Sodium Succinate (SoluMEDROL INJ) 125 mg ONCE ONCE IVP Last administered on 03/11/17 01:05; Start 03/11/17 at 00:30; Stop 03/11/17 at 00:31; Status DC Albuterol/ Ipratropium (Duoneb Neb) 1 ampule Q15M INH Last administered on 03/11 00:46; Start 03/11/17 at 00:30; Stop 03/11/17 at 01:01; Status DC Albuterol/ Ipratropium (Duoneb Neb) 3 ampule STK-MED ONCE .ROUTE ; Start at 00:27; Stop 03/11/17 at 00:28; Status DC Morphine Sulfate (Morphine Inj) 4 mg ONCE ONCE IV PUSH Last administered on 01:05; Start 03/11/17 at 00:45; Stop 03/11/17 at 00:46; Status DC Ondansetron HCl (Zofran Inj) 4 mg ONCE ONCE IV PUSH Last administered on 01:06; Start 03/11/17 at 00:45; Stop 03/11/17 at 00:46; Status DC Iohexol 75 ml 75 ml STK-MED ONCE IV Last administered on 03/11/17 01:25; Start 03/11/17 at 01:25; Stop 03/11/17 at 01:26; Status DC Piperacillin Sod/ Tazobactam Sod 100 ml @ 200 mls/hr ONCE ONCE IV Last administered on 03/11/17 02:14; Start 03/11/17 at 02:15; Stop 03/11/17 at 02:44 ; Status DC Pharmacy Profile Note 0 ml @ 0 mls/hr UNSCH OTHER ; Start 03/11/17 at 02:45 Piperacillin Sod/ Tazobactam Sod (Zosyn 3.375 Gm Premix) 50 ml @ 100 mls/hr Q6H IV Last administered on 03/12/17 08:24; Start 03/11/17 at 08:00 Albuterol/ Ipratropium (Duoneb Neb) 1 ampule Q4HR NEB PRN NEB SOB/WHEEZING; Start 03/11/17 at 02:45 Budesonide/ Formoterol Fumarate 2 puff 2 puff Q12HR INH Last administered on 08:24; Start 03/11/17 at 09:00 Sodium Chloride (NS 1000 ml Inj) 1,000 ml @ 100 mls/hr Q10H IV Last administered on 03/12/17 06:42; Start 03/11/17 at 02:42 Sodium Chloride (NS Flush) 2 ml UNSCH PRN IV FLUSH FLUSH AFTER USING IV ACCESS ; Start 03/11/17 at 02:45 Sodium Chloride (NS Flush) 2 ml BID IV FLUSH ; Start 03/11/17 at 09:00 Ondansetron HCl (Zofran Inj) 4 mg Q6H PRN IVP NAUSEA OR VOMITING; Start at 02:45 Morphine Sulfate (Morphine Inj) 2 mg Q3H PRN IV Pain 6-10; Start 03/11/17 at 02 :45 Oxycodone HCl (Roxicodone) 5 mg Q4H PRN PO PAIN SCALE 3 TO 5 Last administered on 03/11/17 23:13; Start 03/11/17 at 02:45 Senna/Docusate Sodium (Yanni-Colace) 1 tab BID PO Last administered on 08:24; Start 03/11/17 at 09:00 Magnesium Hydroxide (Milk Of Magnesia Liq) 30 ml Q12H PRN PO MILD - MODERATE CONSTIPATION; Start 03/11/17 at 02:45 Sennosides (Senokot) 17.2 mg Q12H PRN PO MODERATE - SEVERE CONSTIPATION; Start 03/11/17 at 02:45 Bisacodyl (Dulcolax Supp) 10 mg DAILY PRN RECTAL SEVERE CONSITIPATION; Start at 02:45 Lactulose (Lactulose Liq) 30 ml DAILY PRN PO SEVERE CONSITIPATION; Start at 02:45 Potassium Chloride 40 meq 40 meq ONCE ONCE PO Last administered on 03/11/17 04:08; Start 03/11/17 at 02:45; Stop 03/11/17 at 02:57; Status DC Vancomycin HCl/ Sodium Chloride (Vancomycin Inj/ NS 500 ml Inj) 518 ml @ 250 mls/hr DAILY@04 IV Last administered on 03/11/17 05:12; Start 03/11/17 at 04: 00; Stop 03/11/17 at 07:00; Status DC Methylprednisolone Sodium Succinate (SoluMEDROL INJ) 40 mg Q6HR IV PUSH Last administered on 03/12/17 05:20; Start 03/11/17 at 06:00 Bumetanide 1 mg 1 mg DAILY PO Last administered on 03/12/17 08:24; Start 03/11 at 09:00 Vancomycin HCl/ Sodium Chloride (Vancomycin Inj/ NS 500 ml Inj) 517.5 ml @ 250 mls/hr Q24H IV Last administered on 03/12/17 04:20; Start 03/12/17 at 04:00 Miscellaneous Information SPECIFIC LAB TO BE DRAWN:VA... ONCE ONCE .XX ; Start 03/14/17 at 03:45; Stop 03/14/17 at 03:46 A/P Assessment and Plan A/P 1. acute respiratory failure due to COPD exacerbation and bibasilar pneumonia. continue with IV antibiotic - start to taper down IV steroid- keep on oxygen to keep O2 sat >90%- continue with neb treatment- walk test before discharge. 2. bacteremia/cholangitis ; one bottle of blood cultures with gram negative jose- continue antibiotics- repeat the blood cultures today and follow the final ID and sensitivity. MRCP with dilatation of the common bile duct- GI consulted- 3. Hypokalemia: replaced. 4. DVT Prophylaxis: SCD/teds. Discharge Planning not ready for discharge today. Blayne Yao MD Mar 12, 2017 09:51 Blayne Yao MD Mar 12, 2017 09:51
[2017-03-12 12:00] VITALS: BP 189/95; PULSE 68; RESP 18; TEMP 95.5; O2SAT 90
[2017-03-12 16:00] VITALS: BP 150/76; PULSE 81; RESP 20; TEMP 95.5; O2SAT 94
--- NOTE | 2017-03-12 16:13 | PD.PN.STU ---
Subjective Remarks S: Patient is a 67 year old female who presents for GI follow up She states taht she feels better today; less abdominal pain, grades it a 2/10. She has been eating solid foods and denies any changes with the pain to food no bowel movements denies fevers chills, nausea, vomiting, dysphagia, chest pain, or SOB Remaining ROS unremarkable Objective Vitals Vital Signs Date Time Temp Pulse Resp B/P Pulse Ox O2 Delivery O2 Flow Rate FiO2 03/12/17 12:00 95.5 68 18 189/95 90 03/12/17 08:00 95.7 63 19 176/94 91 03/12/17 00:00 98.2 87 20 113/60 92 03/11/17 20:00 97.0 85 20 126/64 92 I/O 03/11/17 03/11/17 03/11/17 03/12/17 03/12/17 03/12/17 07:00 15:00 23:00 07:00 15:00 23:00 Intake Total 561 ml 620 ml 906 ml 902 ml 1653 ml Output Total 0 ml 200 ml Balance 561 ml 620 ml 706 ml 902 ml 1653 ml Intake Oral 240 ml 620 ml 600 ml IV Total 321 ml 906 ml 902 ml 1053 ml Output Urine Total 0 ml 200 ml # Voids 2 4 # Bowel Movements 0 0 0 O: General: WDWN; appropriate affect and behavior HEENT: negative Neck: supple, (-) LAD Heart: RRR, nl S1, S2 Lungs: CTA Abdomen: soft, non tender, non distended. normal bowel sounds, no tenderness upon palpation of mid back. no HSM appreciated Ext: no edema or cyanosis neuro: alert and oriented x 3; no focal deficits Result Diagram: 03/12/17 0510 03/12/17 0510 Other Results Laboratory Tests Test 03/11/17 03/11/17 03/11/17 03/12/17 00:24 00:30 00:38 05:10 Blood Gas HCO3 27 mmol/L (22-26) Blood Gas Base Excess 3.4 mmol/L (-2-2) Arterial Blood pH 7.44 (7.380-7.420) Potassium Level 3.3 MEQ/L (3.5-5.1) Creatinine 1.16 MG/DL 1.19 MG/DL (0.50-1.00) (0.50-1.00) Estimat Glomerular Filtration 47 ML/MIN (>89) 45 ML/MIN (>89) Rate Random Glucose 158 MG/DL 193 MG/DL (74-106) (74-106) Total Bilirubin 4.0 MG/DL 1.2 MG/DL (0.2-1.0) (0.2-1.0) Aspartate Amino Transf 242 U/L (15-37) 145 U/L (15-37) (AST/SGOT) Alanine Aminotransferase 216 U/L (10-53) 237 U/L (10-53) (ALT/SGPT) Alkaline Phosphatase 280 U/L 203 U/L (45-117) (45-117) Troponin I LESS THAN 0.02 NG/ML (0.02-0.05) White Blood Count 15.8 TH/MM3 12.2 TH/MM3 (4.0-11.0) (4.0-11.0) Neutrophils % (Manual) 81 % (16-70) Band Neutrophils % 13 % (0-6) Lymphocytes % 3 % (9-44) Neutrophils # (Manual) 14.9 TH/MM3 (1.8-7.7) Bedside Potassium 3.2 MMOL/L (3.5-4.9) Bedside Glucose 169 MG/DL (60-95) Red Blood Count 3.87 MIL/MM3 (4.00-5.30) Neutrophils (%) (Auto) 93.1 % (16.0-70.0) Lymphocytes (%) (Auto) 4.2 % (9.0-44.0) Neutrophils # (Auto) 11.4 TH/MM3 (1.8-7.7) Lymphocytes # (Auto) 0.5 TH/MM3 (1.0-4.8) Albumin 2.8 GM/DL (3.4-5.0) Imaging Last Impressions Chest X-Ray 03/11/17 0024 Signed Impressions: Service Date/Time: Saturday, March 11, 2017 00:41 - CONCLUSION: No acute disease. Santi Man MD Cholangiopancreatography MRI 03/11/17 0000 Signed Impressions: Service Date/Time: Saturday, March 11, 2017 03:11 - CONCLUSION: 1. There is mild dilatation of the gallbladder. No evidence for cholelithiasis. 2. There is dilatation of the common bile duct measuring 11 mm. No definite mass or filling defect seen. Distal obstructing lesion cannot be excluded. ERCP may be warranted. 3. Main pancreatic duct is normal. Santi Man MD CT Angiography 03/11/17 0000 Signed Impressions: Service Date/Time: Monday, March 11, 2017 01:19 - CONCLUSION: 1. No evidence for pulmonary embolism. 2. Peribronchial thickening and scattered densities in lower lobes greater in the left lower lobe likely infectious. 3. Borderline prominent lymph node in the right precarinal region measures 1.4 cm in short axis. Santi Man MD Medications and IVs Current Medications Medications (Trade) Dose Ordered Sig/Wendy Route Start Time Stop Time Status Last Admin Sodium Chloride 2 ml 2 ml UNSCH PRN IVF 03/11/17 00:30 Pharmacy Profile Note 0 ml @ 0 mls/hr UNSCH OTHER 03/11/17 02:45 (Zosyn 3.375 Gm Premix) 50 ml @ 100 mls/hr Q6H IV 03/11/17 08:00 03/12/17 14:43 Budesonide/ Formoterol Fumarate 2 puff 2 puff Q12HR INH 03/11/17 09:00 03/12/17 08:24 (NS 1000 ml Inj) 1,000 ml @ 100 mls/hr Q10H IV 03/11/17 02:42 03/12/17 06:42 (NS Flush) 2 ml UNSCH PRN IV FLUSH 03/11/17 02:45 (NS Flush) 2 ml BID IV FLUSH 03/11/17 09:00 (Zofran Inj) 4 mg Q6H PRN IVP 03/11/17 02:45 (Morphine Inj) 2 mg Q3H PRN IV 03/11/17 02:45 (Roxicodone) 5 mg Q4H PRN PO 03/11/17 02:45 03/11/17 23:13 (Yanni-Colace) 1 tab BID PO 03/11/17 09:00 03/12/17 08:24 (Milk Of Magnesia Liq) 30 ml Q12H PRN PO 03/11/17 02:45 (Senokot) 17.2 mg Q12H PRN PO 03/11/17 02:45 03/12/17 14:48 (Dulcolax Supp) 10 mg DAILY PRN RECTAL 03/11/17 02:45 (Lactulose Liq) 30 ml DAILY PRN PO 03/11/17 02:45 (Bumetanide) 1 mg DAILY PO 03/11/17 09:00 03/12/17 08:24 Miscellaneous Information SPECIFIC LAB TO BE DRAWN:OTONIEL DATE TO BE DR[facility].. ONCE ONCE .XX 03/14/17 09:45 03/14/17 09:46 Methylprednisolone Sodium Succinate 40 mg 40 mg Q8HR IV PUSH 03/12/17 14:00 03/12/17 14:43 (Vancomycin Inj/ NS 500 ml Inj) 517.5 ml @ 250 mls/hr Q18H IV 03/12/17 22:00 A/P Assessment and Plan A: abdominal pain, elevated LFTs and elevated WBC, abnormal MRCP with dilation of biliary tree. 1. Ascending cholangitis with possible secondary sepsis: resolved 2. possible cholecystitis: resolved P: 1. LFT's have decreased since yesterday and patient has been feeling better, so ascending cholangitis has most likely resolved 2. 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 Advised to stay away from high cholesterol in diet patient was seen and examined by me, agree with above note, continue Abx, will hold off on ERCP for now and she will FU with her GI MD as outpatient. Yas Barr Mar 12, 2017 16:13 Annalisa Vee MD Mar 12, 2017 18:02
[2017-03-12 20:00] VITALS: BP 189/99; PULSE 73; RESP 19; TEMP 96.8; O2SAT 92
[2017-03-12 23:31] VITALS: BP 170/87; PULSE 64; RESP 19; TEMP 96.1; O2SAT 95
[2017-03-13] MEDS: PIPERACIL-TAZO 3.375 GM PREMIX 50 ML IV SCH ×4 (02:18→20:36)
[2017-03-13 04:00] VITALS: BP 163/78; PULSE 67; RESP 19; TEMP 96.7; O2SAT 94
[2017-03-13] MEDS: SODIUM CHLOR 0.9% 1000 ML INJ 1,000 ML IV SCH ×2 (04:48→14:42)
[2017-03-13] MEDS: methylPREDNISolone SOD SUCC 40 MG/1 ML VIAL IV PUSH SCH ×3 (04:49→20:36)
[2017-03-13 08:00] VITALS: BP 180/92; PULSE 64; RESP 20; TEMP 95.5; O2SAT 90
[2017-03-13] MEDS: DOCUSATE SODIUM 50 MG/SENNA 8.6 MG TAB PO SCH ×2 (08:09→20:35)
[2017-03-13] MEDS: BUMETANIDE 1 MG TAB PO SCH (08:09)
[2017-03-13] MEDS: BUDESONIDE-FORMOTEROL 160/4.5 MCG INHALER INH SCH ×2 (08:10→20:37)
[2017-03-13] MEDS: SODIUM CHLORIDE 0.9% FLUSH 10 ML FLUSH IV FLUSH SCH ×2 (08:10→20:36)
--- NOTE | 2017-03-13 09:46 | HHI.PR ---
Subjective Remarks f/u; cholangitis/ bacteremia resting comfortably with no distress. no fever. no abdominal pain, nausea or vomiting. hoping that she would go home today. Objective Vitals Vital Signs Date Time Temp Pulse Resp B/P Pulse Ox O2 Delivery O2 Flow Rate FiO2 03/13/17 08:00 95.5 64 20 180/92 90 03/13/17 04:00 96.7 67 19 163/78 94 03/12/17 23:31 96.1 64 19 170/87 95 03/12/17 20:00 96.8 73 19 189/99 92 03/12/17 16:00 95.5 81 20 150/76 94 03/12/17 12:00 95.5 68 18 189/95 90 I/O 03/12/17 03/12/17 03/12/17 03/13/17 03/13/17 03/13/17 07:00 15:00 23:00 07:00 15:00 23:00 Intake Total 902 ml 1653 ml 932 ml 1351 ml Balance 902 ml 1653 ml 932 ml 1351 ml Intake Oral 600 ml 360 ml 240 ml IV Total 902 ml 1053 ml 572 ml 1111 ml # Voids 4 2 2 # Bowel Movements 0 0 0 Result Diagram: 03/12/17 0510 03/12/17 0510 Imaging Last Impressions Chest X-Ray 03/11/17 0024 Signed Impressions: Service Date/Time: Saturday, March 11, 2017 00:41 - CONCLUSION: No acute disease. Santi Man MD Cholangiopancreatography MRI 03/11/17 0000 Signed Impressions: Service Date/Time: Saturday, March 11, 2017 03:11 - CONCLUSION: 1. There is mild dilatation of the gallbladder. No evidence for cholelithiasis. 2. There is dilatation of the common bile duct measuring 11 mm. No definite mass or filling defect seen. Distal obstructing lesion cannot be excluded. ERCP may be warranted. 3. Main pancreatic duct is normal. Santi Man MD CT Angiography 03/11/17 0000 Signed Impressions: Service Date/Time: Saturday, March 11, 2017 01:19 - CONCLUSION: 1. No evidence for pulmonary embolism. 2. Peribronchial thickening and scattered densities in lower lobes greater in the left lower lobe likely infectious. 3. Borderline prominent lymph node in the right precarinal region measures 1.4 cm in short axis. Santi Man MD Objective Remarks GENERAL: This is a well-nourished, well-developed patient, in no apparent distress. CARDIOVASCULAR: Regular rate and regular rhythm without murmurs, gallops, or rubs. RESPIRATORY: diminished air entry in bases GASTROINTESTINAL: Abdomen soft, no tenderness, nondistended. Normal, active bowel sounds MUSCULOSKELETAL: Extremities without clubbing, cyanosis, or edema. NEURO: Alert & Oriented x4 to person, place, time, situation. Moves all ext x4 Procedures none Medications and IVs Current Medications Sodium Chloride (NS Flush) 2 ml UNSCH PRN IVF FLUSH AFTER USING IV ACCESS; Start 03/11/17 at 00:30 Methylprednisolone Sodium Succinate (SoluMEDROL INJ) 125 mg ONCE ONCE IVP Last administered on 03/11/17 01:05; Start 03/11/17 at 00:30; Stop 03/11/17 at 00:31; Status DC Albuterol/ Ipratropium (Duoneb Neb) 1 ampule Q15M INH Last administered on 03/11 00:46; Start 03/11/17 at 00:30; Stop 03/11/17 at 01:01; Status DC Albuterol/ Ipratropium (Duoneb Neb) 3 ampule STK-MED ONCE .ROUTE ; Start at 00:27; Stop 03/11/17 at 00:28; Status DC Morphine Sulfate (Morphine Inj) 4 mg ONCE ONCE IV PUSH Last administered on 01:05; Start 03/11/17 at 00:45; Stop 03/11/17 at 00:46; Status DC Ondansetron HCl (Zofran Inj) 4 mg ONCE ONCE IV PUSH Last administered on 01:06; Start 03/11/17 at 00:45; Stop 03/11/17 at 00:46; Status DC Iohexol 75 ml 75 ml STK-MED ONCE IV Last administered on 03/11/17 01:25; Start 03/11/17 at 01:25; Stop 03/11/17 at 01:26; Status DC Piperacillin Sod/ Tazobactam Sod 100 ml @ 200 mls/hr ONCE ONCE IV Last administered on 03/11/17 02:14; Start 03/11/17 at 02:15; Stop 03/11/17 at 02:44 ; Status DC Pharmacy Profile Note 0 ml @ 0 mls/hr UNSCH OTHER ; Start 03/11/17 at 02:45 Piperacillin Sod/ Tazobactam Sod (Zosyn 3.375 Gm Premix) 50 ml @ 100 mls/hr Q6H IV Last administered on 03/13/17 08:09; Start 03/11/17 at 08:00 Albuterol/ Ipratropium (Duoneb Neb) 1 ampule Q4HR NEB PRN NEB SOB/WHEEZING; Start 03/11/17 at 02:45 Budesonide/ Formoterol Fumarate 2 puff 2 puff Q12HR INH Last administered on 08:10; Start 03/11/17 at 09:00 Sodium Chloride (NS 1000 ml Inj) 1,000 ml @ 100 mls/hr Q10H IV Last administered on 03/13/17 04:48; Start 03/11/17 at 02:42 Sodium Chloride (NS Flush) 2 ml UNSCH PRN IV FLUSH FLUSH AFTER USING IV ACCESS ; Start 03/11/17 at 02:45 Sodium Chloride (NS Flush) 2 ml BID IV FLUSH ; Start 03/11/17 at 09:00 Ondansetron HCl (Zofran Inj) 4 mg Q6H PRN IVP NAUSEA OR VOMITING; Start at 02:45 Morphine Sulfate (Morphine Inj) 2 mg Q3H PRN IV Pain 6-10; Start 03/11/17 at 02 :45 Oxycodone HCl (Roxicodone) 5 mg Q4H PRN PO PAIN SCALE 3 TO 5 Last administered on 03/12/17 21:44; Start 03/11/17 at 02:45 Senna/Docusate Sodium (Yanni-Colace) 1 tab BID PO Last administered on 08:09; Start 03/11/17 at 09:00 Magnesium Hydroxide (Milk Of Magnesia Liq) 30 ml Q12H PRN PO MILD - MODERATE CONSTIPATION; Start 03/11/17 at 02:45 Sennosides (Senokot) 17.2 mg Q12H PRN PO MODERATE - SEVERE CONSTIPATION Last administered on 03/12/17 14:48; Start 03/11/17 at 02:45 Bisacodyl (Dulcolax Supp) 10 mg DAILY PRN RECTAL SEVERE CONSITIPATION; Start at 02:45 Lactulose (Lactulose Liq) 30 ml DAILY PRN PO SEVERE CONSITIPATION; Start at 02:45 Potassium Chloride 40 meq 40 meq ONCE ONCE PO Last administered on 03/11/17 04:08; Start 03/11/17 at 02:45; Stop 03/11/17 at 02:57; Status DC Vancomycin HCl/ Sodium Chloride (Vancomycin Inj/ NS 500 ml Inj) 518 ml @ 250 mls/hr DAILY@04 IV Last administered on 03/11/17 05:12; Start 03/11/17 at 04: 00; Stop 03/11/17 at 07:00; Status DC Methylprednisolone Sodium Succinate (SoluMEDROL INJ) 40 mg Q6HR IV PUSH Last administered on 03/12/17 05:20; Start 03/11/17 at 06:00; Stop 03/12/17 at 09:52 ; Status DC Bumetanide 1 mg 1 mg DAILY PO Last administered on 03/13/17 08:09; Start 03/11 at 09:00 Vancomycin HCl/ Sodium Chloride (Vancomycin Inj/ NS 500 ml Inj) 517.5 ml @ 250 mls/hr Q24H IV Last administered on 03/12/17 04:20; Start 03/12/17 at 04:00; Stop 03/12/17 at 11:51; Status DC Miscellaneous Information SPECIFIC LAB TO BE DRAWN:OTONIEL DATE TO BE [facility].. ONCE ONCE .XX ; Start 03/14/17 at 09:45; Stop 03/14/17 at 09:46 Methylprednisolone Sodium Succinate 40 mg 40 mg Q8HR IV PUSH Last administered on 03/13/17 04:49; Start 03/12/17 at 14:00 Vancomycin HCl/ Sodium Chloride (Vancomycin Inj/ NS 500 ml Inj) 517.5 ml @ 250 mls/hr Q18H IV Last administered on 03/12/17 21:44; Start 03/12/17 at 22:00 A/P Assessment and Plan A/P 1. acute respiratory failure due to COPD exacerbation and bibasilar pneumonia. continue with antibiotic - switch to po prednisone- keep on oxygen to keep O2 sat >90%- continue with neb treatment- walk test today. 2. bacteremia/cholangitis ; one bottle of blood cultures with e-coli- continue antibiotics- follow the repeat the blood cultures from 03/12/ and follow the final ID and sensitivity of the initial blood cultures. MRCP with dilatation of the common bile duct- d/w GI today; will consult general surgery. 3. Hypokalemia: replaced. 4. DVT Prophylaxis: SCD/teds. Discharge Planning dc home within the next 24-48 hrs- pending the result of blood cultures and surgery evaluation. see med list. f/u; pcp and GI. d/w the patient. time spent 31 min. Blayne Yao MD Mar 13, 2017 09:45 Blayne Yao MD Mar 13, 2017 09:45
[2017-03-13] MEDS ORDERED: SYMB160A INH (09:52)
[2017-03-13] MEDS ORDERED: METR-1 PO (09:52)
[2017-03-13] MEDS ORDERED: PRED5TAB PO (09:52)
[2017-03-13] MEDS ORDERED: LEVA500T20 PO (09:52)
--- NOTE | 2017-03-13 09:53 | HHI.DCPOC ---
Discharge Care Plan Diagnosis: (1) Hypoxia (2) Ascending cholangitis Your Health Problems Are: Inflammation Cough Shortness of Breath Goals to Promote Your Health * To prevent worsening of your condition and complications * To maintain your health at the optimal level Directions to Meet Your Goals Take your medications as prescribed Follow your dietary instruction Follow activity as directed Keep your appointments as scheduled Take your immunizations and boosters as scheduled If your symptoms worsen call your PCP, if no PCP go to Urgent Care Center or Emergency Room Smoking is Dangerous to Your Health. Avoid second hand smoke Call the 24-hour hour crisis hotline for domestic abuse at Blayne Yao MD Mar 13, 2017 09:53
--- NOTE | 2017-03-13 09:53 | HHI.DS ---
Discharge Summary Admission Date Mar 11, 2017 at 02:53 Discharge Date: Mar 13, 2017 Admitting Diagnosis ascending cholangitis, sepsis, shortness of breath, hypoxia (1) COPD (chronic obstructive pulmonary disease) ICD Code: J44.9 Diagnosis: Principal (2) PNA (pneumonia) ICD Code: J18.9 Diagnosis: Principal (3) Hypoxia ICD Code: R09.02 Diagnosis: Principal (4) Ascending cholangitis ICD Code: K83.0 Diagnosis: Principal (5) Renal insufficiency ICD Code: N28.9 Diagnosis: Secondary (6) Hypokalemia ICD Code: E87.6 Diagnosis: Secondary Procedures none Brief History - From Admission This is a 67-year-old female with a PMH of HTN, COPD, CHF (Unknown EF) and h/o Cholelithiasis who presented to the ER with complaints of severe SOB which started acutely this evening. Patient and are visiting from [place] , reports progressive SOB after driving from [place] 2 days ago. No chest pain or cough reported. Today, pt w/ c/o acute SOB and epigastric/RUQ pain. Per , pt recently hospitalized in [place] approx 2 mo ago for similar complaints, found to have gallstone and underwent stone extraction. Has been doing well since then up until now. On arrival, BP 168/101, HR 98, O2 sat 85% on an RM, Afebrile. Currently on 2L NC w/ O2 sat 98%. WBC 15.8. Bands 13. K+ 3.2. Creatinine 1.16, no previous labs for comparison. LFTs elevated, no previous labs for comparison. INR 1.0. CXR with no acute disease. CTA Pulm negative for PE, peribronchial thickening and scattered densities lower lobes likely infectious. S/p Solu-Medrol and Zosyn in ER. GI consulted by ER physician, recommended MRCP. CBC/BMP: 03/12/17 0510 03/12/17 0510 Significant Findings Laboratory Tests Test 03/11/17 03/11/17 03/11/17 03/12/17 00:24 00:30 00:38 05:10 Blood Gas HCO3 27 mmol/L (22-26) Blood Gas Base Excess 3.4 mmol/L (-2-2) Arterial Blood pH 7.44 (7.380-7.420) Potassium Level 3.3 MEQ/L (3.5-5.1) Creatinine 1.16 MG/DL 1.19 MG/DL (0.50-1.00) (0.50-1.00) Estimat Glomerular Filtration 47 ML/MIN (>89) 45 ML/MIN (>89) Rate Random Glucose 158 MG/DL 193 MG/DL (74-106) (74-106) Total Bilirubin 4.0 MG/DL 1.2 MG/DL (0.2-1.0) (0.2-1.0) Aspartate Amino Transf 242 U/L (15-37) 145 U/L (15-37) (AST/SGOT) Alanine Aminotransferase 216 U/L (10-53) 237 U/L (10-53) (ALT/SGPT) Alkaline Phosphatase 280 U/L 203 U/L (45-117) (45-117) Troponin I LESS THAN 0.02 NG/ML (0.02-0.05) White Blood Count 15.8 TH/MM3 12.2 TH/MM3 (4.0-11.0) (4.0-11.0) Neutrophils % (Manual) 81 % (16-70) Band Neutrophils % 13 % (0-6) Lymphocytes % 3 % (9-44) Neutrophils # (Manual) 14.9 TH/MM3 (1.8-7.7) Bedside Potassium 3.2 MMOL/L (3.5-4.9) Bedside Glucose 169 MG/DL (60-95) Red Blood Count 3.87 MIL/MM3 (4.00-5.30) Neutrophils (%) (Auto) 93.1 % (16.0-70.0) Lymphocytes (%) (Auto) 4.2 % (9.0-44.0) Neutrophils # (Auto) 11.4 TH/MM3 (1.8-7.7) Lymphocytes # (Auto) 0.5 TH/MM3 (1.0-4.8) Albumin 2.8 GM/DL (3.4-5.0) Imaging Last Impressions Chest X-Ray 03/11/17 0024 Signed Impressions: Service Date/Time: Saturday, March 11, 2017 00:41 - CONCLUSION: No acute disease. Santi Man MD Cholangiopancreatography MRI 03/11/17 0000 Signed Impressions: Service Date/Time: Saturday, March 11, 2017 03:11 - CONCLUSION: 1. There is mild dilatation of the gallbladder. No evidence for cholelithiasis. 2. There is dilatation of the common bile duct measuring 11 mm. No definite mass or filling defect seen. Distal obstructing lesion cannot be excluded. ERCP may be warranted. 3. Main pancreatic duct is normal. Santi Man MD CT Angiography 03/11/17 0000 Signed Impressions: Service Date/Time: Saturday, March 11, 2017 01:19 - CONCLUSION: 1. No evidence for pulmonary embolism. 2. Peribronchial thickening and scattered densities in lower lobes greater in the left lower lobe likely infectious. 3. Borderline prominent lymph node in the right precarinal region measures 1.4 cm in short axis. Santi Man MD PE at Discharge GENERAL: This is a well-nourished, well-developed patient, in no apparent distress. CARDIOVASCULAR: Regular rate and regular rhythm without murmurs, gallops, or rubs. RESPIRATORY: diminished air entry in bases GASTROINTESTINAL: Abdomen soft, no tenderness, nondistended. Normal, active bowel sounds MUSCULOSKELETAL: Extremities without clubbing, cyanosis, or edema. NEURO: Alert & Oriented x4 to person, place, time, situation. Moves all ext x4 Hospital Course 1. acute respiratory failure due to COPD exacerbation and bibasilar pneumonia. continue with antibiotic - switch to po prednisone- keep on oxygen to keep O2 sat >90%- continue with neb treatment- walk test before today. 2. bacteremia/cholangitis ; one bottle of blood cultures with e-coli- continue antibiotics- follow the repeat the blood cultures from 03/12/ and follow the final ID and sensitivity of the initial blood cultures. MRCP with dilatation of the common bile duct- GI follow-up appreciated and recommended out-patient f/u. surgery evaluation was d/w the patient but she said that she'd rather outpatient follow-up. 3. Hypokalemia: replaced. 4. DVT Prophylaxis: SCD/teds. Pt Condition on Discharge: Stable Discharge Disposition: Discharge Home Discharge Time: > 30 minutes Discharge Instructions DIET: Follow Instructions for: Heart Healthy Diet Activities you can perform: Regular-No Restrictions Follow up Referrals: Gastroenterology PCP Follow-up New Medications: Levofloxacin (Levaquin) 500 Mg Tablet 500 MG PO DAILY infection Days 10 Ref 0 TAB Metronidazole (Flagyl) 500 Mg Tab 500 MG PO TID Infection Days 10 Ref 0 TAB Prednisone (Prednisone) 5 Mg Tab 5 MG PO DIRECTED 40 mg po daily for two days then 30 mg po daily for two days then 20 mg po daily for two days then 10 mg po daily for two days then 5 mg po daily for two days then stop. copd Days 10 Ref 0 TAB Budesonide-Formoterol Inh (Symbicort Inh) 160-4.5 Mcg/Act Aero 2 PUFF INH Q12HR copd #1 Ref 0 INHALER Continued Medications: Albuterol 18 GM Inh (Ventolin Hfa 18 GM Inh) 90 Mcg/Act Aer 2 PUFF INH Q4-6H PRN SHORTNESS OF BREATH #1 Ref 0 INHALER Albuterol 6.7 GM Inh (Proventil Hfa 6.7 GM Inh) 90 Mcg/Act Aer 2 PUFF INH Q4-6H PRN SHORTNESS OF BREATH #1 Ref 0 INHALER Bumetanide (Bumetanide) 1 Mg Tab 1 MG PO DAILY #30 Ref 0 TAB Ergocalciferol (Vitamin D2) 2,000 Unit Tab 41885 UNITS PO WEEKLY Nutritional Supplement Ref 0 TAB Pantoprazole (Pantoprazole) 40 Mg Tab 40 MG PO DAILY Reflux #30 Ref 0 TAB Tiotropium Inh (Spiriva Respimat Inh) 2.5 Mcg/Act Aero 2 PUFF INH DAILY 2.5 mcg = 1 inhalation COPD #1 Ref 0 INHALER Blayne Yao MD Mar 13, 2017 09:53
--- NOTE | 2017-03-13 11:50 | HHI.GIFU ---
Subjective Remarks Resting in bed. Having some mild lower abdominal "soreness" but not pain. No n /v. Tolerating diet. Wants to go home soon, but has agreed to see GS during her hospitalization. Objective Vitals I&O Vital Signs Date Time Temp Pulse Resp B/P Pulse Ox O2 Delivery O2 Flow Rate FiO2 03/13/17 08:00 95.5 64 20 180/92 90 03/13/17 04:00 96.7 67 19 163/78 94 03/12/17 23:31 96.1 64 19 170/87 95 03/12/17 20:00 96.8 73 19 189/99 92 03/12/17 16:00 95.5 81 20 150/76 94 03/12/17 12:00 95.5 68 18 189/95 90 I/O 03/12/17 03/12/17 03/12/17 03/13/17 03/13/17 03/13/17 07:00 15:00 23:00 07:00 15:00 23:00 Intake Total 902 ml 1653 ml 932 ml 1351 ml Balance 902 ml 1653 ml 932 ml 1351 ml Intake Oral 600 ml 360 ml 240 ml IV Total 902 ml 1053 ml 572 ml 1111 ml # Voids 4 2 2 # Bowel Movements 0 0 0 Laboratory Date/Time Procedure Status Source Growth 03/12/17 11:10 Aerobic Blood Culture - Preliminary Resulted Blood Peripheral NO GROWTH IN 1 DAY 03/12/17 11:10 Anaerobic Blood Culture - Preliminary Resulted Blood Peripheral NO GROWTH IN 1 DAY Imaging Last Impressions Chest X-Ray 03/11/17 0024 Signed Impressions: Service Date/Time: Saturday, March 11, 2017 00:41 - CONCLUSION: No acute disease. Santi Man MD Cholangiopancreatography MRI 03/11/17 0000 Signed Impressions: Service Date/Time: Saturday, March 11, 2017 03:11 - CONCLUSION: 1. There is mild dilatation of the gallbladder. No evidence for cholelithiasis. 2. There is dilatation of the common bile duct measuring 11 mm. No definite mass or filling defect seen. Distal obstructing lesion cannot be excluded. ERCP may be warranted. 3. Main pancreatic duct is normal. Santi Man MD CT Angiography 03/11/17 0000 Signed Impressions: Service Date/Time: Saturday, March 11, 2017 01:19 - CONCLUSION: 1. No evidence for pulmonary embolism. 2. Peribronchial thickening and scattered densities in lower lobes greater in the left lower lobe likely infectious. 3. Borderline prominent lymph node in the right precarinal region measures 1.4 cm in short axis. Santi Man MD Physical Exam HEENT: Normocephalic; atraumatic; no jaundice. CHEST: CTA CARDIAC: RRR. ABDOMEN: Soft, nondistended, nontender; no hepatosplenomegaly; bowel sounds are present in all four quadrants. EXTREMITIES: No clubbing, cyanosis, or edema. SKIN: Normal; no rash; no jaundice. BODY JOINER: No focal deficits; alert and oriented times three. Assessment and Plan Plan ASSESSMENT: - Ascending cholangitis. BCx was positive for E. Coli. Vancomycin, Zosyn. - Dilated CBD with elevated LFTs. Pt with hx of choledocholithiasis, s/p ERCP ~ 2 months ago in [place]. Did not see GS at that time. States she has a follow up with her GI physician on March 20. MRCP (03/11/17)----> 1. There is mild dilatation of the gallbladder. No evidence for cholelithiasis. 2. There is dilatation of the common bile duct measuring 11 mm. No definite mass or filling defect seen. Distal obstructing lesion cannot be excluded. ERCP may be warranted. 3. Main pancreatic duct is normal. Yesterday's LFTs improved drastically and clinically she is doing much better. BCx was positive for E. Coli. Rpt. LFTs and get GS evaluation. Pt would like to return home to [place] but has agreed to at least see GS. - Abdominal pain, resolved. - Leukocytosis. Improved. Bcx E. Coli. Vanco/Zosyn PLAN: - Low fat diet - Cont. Abx - GS evaluation for possible cholecystectomy with IOC - Supportive care - Further recommendations to follow based on results of above - PT seen and examined by Dr. Li and myself and this note is written on his behalf Damaris Morrison Mar 13, 2017 11:50
[2017-03-13 12:00] VITALS: BP 175/90; PULSE 63; RESP 19; TEMP 95.6; O2SAT 94
[2017-03-13] MEDS ORDERED: OXYGENTANK NAS.CANULA (12:58)
--- NOTE | 2017-03-13 13:34 | PD.CONS ---
HPI Service General Surgery Consult Requested By GI Reason for Consult cholangitis, gallstones Primary Care Physician Non-Staff History of Present Illness 67-year-old female with history of choledocholithiasis status post ERCP 2 months ago in [place] admitted to the hospital for shortness of breath and epigastric pain 2 days ago. She was felt to have pneumonia as well as choledocholithiasis and cholangitis. LFTs significantly improved on the second hospital day. She underwent an MRCP which revealed common bile duct of 11 mm without filling defect and no gallstones were identified. The patient states that she feels much better today and has only mild abdominal pain. She says she has been eating regular food without difficulty. She is very anxious to return to [place] and she has a follow-up appointment with her psych sales specialist on March 20. Review of Systems Constitutional: DENIES: Fever, Chills Eyes: DENIES: Eye inflammation, Eye pain Respiratory: COMPLAINS OF: Shortness of breath, DENIES: Cough Cardiovascular: DENIES: Chest pain Gastrointestinal: COMPLAINS OF: Abdominal pain Integumentary: DENIES: Pruritus, Rash Neurologic: DENIES: Paresthesias, Seizures Past Family Social History Past Medical History HTN, COPD, CHF, choledocholithiasis status post ERCP Past Surgical History Appendectomy Tonsillectomy Reported Medications Reported Meds & Active Scripts Active Flagyl (Metronidazole) 500 Mg Tab 500 Mg PO TID 10 Days Levaquin (Levofloxacin) 500 Mg Tablet 500 Mg PO DAILY 10 Days Prednisone 5 Mg Tab 5 Mg PO DIRECTED 10 Days 40 mg po daily for two days then 30 mg po daily for two days then 20 mg po daily for two days then 10 mg po daily for two days then 5 mg po daily for two days then stop. Symbicort Inh (Budesonide/Formoterol Fumarate) 160-4.5 Mcg/Act Aero 2 Puff INH Q12HR Reported Ventolin Hfa 18 GM Inh (Albuterol Sulfate) 90 Mcg/Act Aer 2 Puff INH Q4-6H PRN Proventil Hfa 6.7 GM Inh (Albuterol Sulfate) 90 Mcg/Act Aer 2 Puff INH Q4-6H PRN Spiriva Respimat Inh (Tiotropium Inh) 2.5 Mcg/Act Aero 2 Puff INH DAILY 2.5 mcg = 1 inhalation Bumetanide 1 Mg Tab 1 Mg PO DAILY Vitamin D2 (Ergocalciferol) 2,000 Unit Tab 50,000 Units PO WEEKLY Pantoprazole (Pantoprazole Sodium) 40 Mg Tab 40 Mg PO DAILY Allergies: Coded Allergies: No Known Allergies (Unverified , 03/11/17) Active Ordered Medications Current Medications Medications (Trade) Dose Ordered Sig/Wendy Route Start Time Stop Time Status Last Admin Sodium Chloride 2 ml 2 ml UNSCH PRN IVF 03/11/17 00:30 (Zosyn 3.375 Gm Premix) 50 ml @ 100 mls/hr Q6H IV 03/11/17 08:00 03/13/17 13:17 Budesonide/ Formoterol Fumarate 2 puff 2 puff Q12HR INH 03/11/17 09:00 03/13/17 08:10 (NS 1000 ml Inj) 1,000 ml @ 100 mls/hr Q10H IV 03/11/17 02:42 03/13/17 04:48 (NS Flush) 2 ml UNSCH PRN IV FLUSH 03/11/17 02:45 (NS Flush) 2 ml BID IV FLUSH 03/11/17 09:00 (Zofran Inj) 4 mg Q6H PRN IVP 03/11/17 02:45 (Morphine Inj) 2 mg Q3H PRN IV 03/11/17 02:45 (Roxicodone) 5 mg Q4H PRN PO 03/11/17 02:45 03/12/17 21:44 (Yanni-Colace) 1 tab BID PO 03/11/17 09:00 03/13/17 08:09 (Milk Of Magnesia Liq) 30 ml Q12H PRN PO 03/11/17 02:45 (Senokot) 17.2 mg Q12H PRN PO 03/11/17 02:45 03/12/17 14:48 (Dulcolax Supp) 10 mg DAILY PRN RECTAL 03/11/17 02:45 (Lactulose Liq) 30 ml DAILY PRN PO 03/11/17 02:45 (Bumetanide) 1 mg DAILY PO 03/11/17 09:00 03/13/17 08:09 (SoluMEDROL INJ) 40 mg Q8HR IV PUSH 03/12/17 14:00 03/13/17 13:17 Family History Noncontributory Social History Occasional alcohol use. No smoking or tobacco use. She lives in [place] and is here on vacation. Physical Exam Vital Signs Vital Signs Date Time Temp Pulse Resp B/P Pulse Ox O2 Delivery O2 Flow Rate FiO2 03/13/17 12:05 2.00 03/13/17 12:00 95.6 63 19 175/90 94 03/13/17 08:00 95.5 64 20 180/92 90 03/13/17 04:00 96.7 67 19 163/78 94 03/12/17 23:31 96.1 64 19 170/87 95 03/12/17 20:00 96.8 73 19 189/99 92 03/12/17 16:00 95.5 81 20 150/76 94 Physical Exam GENERAL: Awake and alert. Anxious and occasionally tearful. Obese. HEAD: Normocephalic. Atraumatic. EYES: Pupils equal round and reactive to light bilaterally. + scleral icterus.. CHEST: Lungs clear to auscultation bilaterally with no wheezing or rhonchi. No respiratory distress. CARDIOVASCULAR: Regular rate and rhythm. ABDOMEN: Obese. Round. Mild tenderness to deep palpation in the right upper quadrant. Negative Musa sign. EXTREMITIES: No cyanosis or edema. SKIN: Warm, dry, nonjaundiced. Laboratory Date/Time Procedure Status Source Growth 03/12/17 11:10 Aerobic Blood Culture - Preliminary Resulted Blood Peripheral NO GROWTH IN 1 DAY 03/12/17 11:10 Anaerobic Blood Culture - Preliminary Resulted Blood Peripheral NO GROWTH IN 1 DAY Result Diagram: 03/12/17 0510 03/12/17 0510 Imaging Last Impressions Chest X-Ray 03/11/17 0024 Signed Impressions: Service Date/Time: Saturday, March 11, 2017 00:41 - CONCLUSION: No acute disease. Santi Man MD Cholangiopancreatography MRI 03/11/17 0000 Signed Impressions: Service Date/Time: Saturday, March 11, 2017 03:11 - CONCLUSION: 1. There is mild dilatation of the gallbladder. No evidence for cholelithiasis. 2. There is dilatation of the common bile duct measuring 11 mm. No definite mass or filling defect seen. Distal obstructing lesion cannot be excluded. ERCP may be warranted. 3. Main pancreatic duct is normal. Santi Man MD CT Angiography 03/11/17 0000 Signed Impressions: Service Date/Time: Monday, March 11, 2017 01:19 - CONCLUSION: 1. No evidence for pulmonary embolism. 2. Peribronchial thickening and scattered densities in lower lobes greater in the left lower lobe likely infectious. 3. Borderline prominent lymph node in the right precarinal region measures 1.4 cm in short axis. Santi Man MD Assessment and Plan Assessment and Plan 67-year-old female with history of choledocholithiasis status post ERCP about 6 weeks ago. She appears to have had choledocholithiasis and cholangitis causing Escherichia coli bacteremia. I think she passed a stone. She is anxious to return to [place]. If her LFTs continue to improve today, I am okay with discharge on antibiotics and follow-up very soon with her psych sales specialist and a general surgeon. She definitely would benefit from cholecystectomy but I do not think that she has to have this done during this hospitalization due to her desire to return home. Discussed in detail with the patient and she understands. Discussed Condition With Damaris SCHUMACHER Edgar,Martín CARTY Mar 13, 2017 13:34
[2017-03-13 16:00] VITALS: BP 179/87; PULSE 70; RESP 19; TEMP 95.5; O2SAT 92
[2017-03-13 16:42] LABS: INDIRECT BILIRUBIN 0.4 MG/DL (0.0-0.8); TOTAL BILIRUBIN ADULT 0.7 MG/DL (0.2-1.0)
[2017-03-13 20:00] VITALS: BP 160/83; PULSE 73; RESP 18; TEMP 96.5; O2SAT 94
[2017-03-14 00:12] VITALS: BP 161/87; PULSE 65; RESP 19; TEMP 96; O2SAT 94
[2017-03-14 00:15] VITALS: BP 161/87; PULSE 65; RESP 19; TEMP 96; O2SAT 94
[2017-03-14] MEDS: SODIUM CHLOR 0.9% 1000 ML INJ 1,000 ML IV SCH ×2 (00:42→08:12)
[2017-03-14] MEDS: PIPERACIL-TAZO 3.375 GM PREMIX 50 ML IV SCH ×2 (02:43→08:07)
[2017-03-14 03:24] VITALS: BP 162/75; PULSE 75; RESP 19; TEMP 96; O2SAT 94
[2017-03-14] MEDS: methylPREDNISolone SOD SUCC 40 MG/1 ML VIAL IV PUSH SCH (06:10)
[2017-03-14 07:18] LABS: AUTOMATED NEUTROPHIL # 6.8 TH/MM3 (1.8-7.7); HEMATOCRIT 37.7 % (35.0-46.0); HEMO FLAGS DIFF FINAL; LYMPH % 9.7 % (9.0-44.0); LYMPHOCYTE # 0.8 TH/MM3 (1.0-4.8); MEAN CELL VOLUME 93.6 FL (80.0-100.0); MEAN CORPUSCULAR HEMOGLOBIN 32.4 PG (27.0-34.0); MEAN CORPUSCULAR HGB CONC 34.6 % (32.0-36.0); MONO % 5.5 % (0.0-8.0); NEUT % 84.8 % (16.0-70.0); PLATELET COUNT 249 TH/MM3 (150-450); RED BLOOD COUNT 4.03 MIL/MM3 (4.00-5.30); RED CELL DISTRIBUTION WIDTH 13.3 % (11.6-17.2)
[2017-03-14 07:41] LABS: INDIRECT BILIRUBIN 0.2 MG/DL (0.0-0.8); TOTAL BILIRUBIN ADULT 0.5 MG/DL (0.2-1.0)
[2017-03-14 08:00] VITALS: BP 184/103; PULSE 61; RESP 20; TEMP 96.3; O2SAT 92
[2017-03-14] MEDS: BUDESONIDE-FORMOTEROL 160/4.5 MCG INHALER INH SCH (08:07)
[2017-03-14] MEDS: BUMETANIDE 1 MG TAB PO SCH (08:08)
[2017-03-14] MEDS: DOCUSATE SODIUM 50 MG/SENNA 8.6 MG TAB PO SCH (08:08)
[2017-03-14] MEDS: SODIUM CHLORIDE 0.9% FLUSH 10 ML FLUSH IV FLUSH SCH (08:08)
--- NOTE | 2017-03-14 09:35 | HHI.PR ---
Subjective Remarks in no acute distress. no fever. no pain, sob or cough. anxious to go home today. d/w the RN. Objective Vitals Vital Signs Date Time Temp Pulse Resp B/P Pulse Ox O2 Delivery O2 Flow Rate FiO2 03/14/17 08:00 96.3 61 20 184/103 92 03/14/17 03:24 96.0 75 19 162/75 94 03/14/17 00:15 96.0 65 19 161/87 94 03/14/17 00:12 96.0 65 19 161/87 94 03/13/17 20:00 96.5 73 18 160/83 94 03/13/17 16:00 95.5 70 19 179/87 92 03/13/17 12:05 2.00 03/13/17 12:00 95.6 63 19 175/90 94 I/O 03/13/17 03/13/17 03/13/17 03/14/17 03/14/17 03/14/17 07:00 15:00 23:00 07:00 15:00 23:00 Intake Total 1351 ml 1348 ml 290 ml 1190 ml Balance 1351 ml 1348 ml 290 ml 1190 ml Intake Oral 240 ml 480 ml 240 ml 240 ml IV Total 1111 ml 868 ml 50 ml 950 ml # Voids 2 4 2 1 # Bowel Movements 0 0 0 0 Result Diagram: 03/14/17 0541 03/12/17 0510 Imaging Last Impressions Chest X-Ray 03/11/17 0024 Signed Impressions: Service Date/Time: Saturday, March 11, 2017 00:41 - CONCLUSION: No acute disease. Santi Man MD Cholangiopancreatography MRI 03/11/17 0000 Signed Impressions: Service Date/Time: Saturday, March 11, 2017 03:11 - CONCLUSION: 1. There is mild dilatation of the gallbladder. No evidence for cholelithiasis. 2. There is dilatation of the common bile duct measuring 11 mm. No definite mass or filling defect seen. Distal obstructing lesion cannot be excluded. ERCP may be warranted. 3. Main pancreatic duct is normal. Santi Man MD CT Angiography 03/11/17 0000 Signed Impressions: Service Date/Time: Saturday, March 11, 2017 01:19 - CONCLUSION: 1. No evidence for pulmonary embolism. 2. Peribronchial thickening and scattered densities in lower lobes greater in the left lower lobe likely infectious. 3. Borderline prominent lymph node in the right precarinal region measures 1.4 cm in short axis. Santi Man MD Objective Remarks GENERAL: This is a well-nourished, well-developed patient, in no apparent distress. CARDIOVASCULAR: Regular rate and regular rhythm without murmurs, gallops, or rubs. RESPIRATORY: better air entry present GASTROINTESTINAL: Abdomen soft, no tenderness, nondistended. Normal, active bowel sounds MUSCULOSKELETAL: Extremities without clubbing, cyanosis, or edema. NEURO: Alert & Oriented x4 to person, place, time, situation. Moves all ext x4 Procedures none Medications and IVs Current Medications Sodium Chloride (NS Flush) 2 ml UNSCH PRN IVF FLUSH AFTER USING IV ACCESS; Start 03/11/17 at 00:30 Methylprednisolone Sodium Succinate (SoluMEDROL INJ) 125 mg ONCE ONCE IVP Last administered on 03/11/17 01:05; Start 03/11/17 at 00:30; Stop 03/11/17 at 00:31; Status DC Albuterol/ Ipratropium (Duoneb Neb) 1 ampule Q15M INH Last administered on 03/11 00:46; Start 03/11/17 at 00:30; Stop 03/11/17 at 01:01; Status DC Albuterol/ Ipratropium (Duoneb Neb) 3 ampule STK-MED ONCE .ROUTE ; Start at 00:27; Stop 03/11/17 at 00:28; Status DC Morphine Sulfate (Morphine Inj) 4 mg ONCE ONCE IV PUSH Last administered on 01:05; Start 03/11/17 at 00:45; Stop 03/11/17 at 00:46; Status DC Ondansetron HCl (Zofran Inj) 4 mg ONCE ONCE IV PUSH Last administered on 01:06; Start 03/11/17 at 00:45; Stop 03/11/17 at 00:46; Status DC Iohexol 75 ml 75 ml STK-MED ONCE IV Last administered on 03/11/17 01:25; Start 03/11/17 at 01:25; Stop 03/11/17 at 01:26; Status DC Piperacillin Sod/ Tazobactam Sod 100 ml @ 200 mls/hr ONCE ONCE IV Last administered on 03/11/17 02:14; Start 03/11/17 at 02:15; Stop 03/11/17 at 02:44 ; Status DC Pharmacy Profile Note 0 ml @ 0 mls/hr UNSCH OTHER ; Start 03/11/17 at 02:45; Stop 03/13/17 at 12:50; Status DC Piperacillin Sod/ Tazobactam Sod (Zosyn 3.375 Gm Premix) 50 ml @ 100 mls/hr Q6H IV Last administered on 03/14/17 08:07; Start 03/11/17 at 08:00 Albuterol/ Ipratropium (Duoneb Neb) 1 ampule Q4HR NEB PRN NEB SOB/WHEEZING; Start 03/11/17 at 02:45 Budesonide/ Formoterol Fumarate 2 puff 2 puff Q12HR INH Last administered on 08:07; Start 03/11/17 at 09:00 Sodium Chloride (NS 1000 ml Inj) 1,000 ml @ 100 mls/hr Q10H IV Last administered on 03/13/17 04:48; Start 03/11/17 at 02:42 Sodium Chloride (NS Flush) 2 ml UNSCH PRN IV FLUSH FLUSH AFTER USING IV ACCESS ; Start 03/11/17 at 02:45 Sodium Chloride (NS Flush) 2 ml BID IV FLUSH Last administered on 03/14/17 08: 08; Start 03/11/17 at 09:00 Ondansetron HCl (Zofran Inj) 4 mg Q6H PRN IVP NAUSEA OR VOMITING; Start at 02:45 Morphine Sulfate (Morphine Inj) 2 mg Q3H PRN IV Pain 6-10; Start 03/11/17 at 02 :45 Oxycodone HCl (Roxicodone) 5 mg Q4H PRN PO PAIN SCALE 3 TO 5 Last administered on 03/13/17 22:14; Start 03/11/17 at 02:45 Senna/Docusate Sodium (Yanni-Colace) 1 tab BID PO Last administered on 20:35; Start 03/11/17 at 09:00 Magnesium Hydroxide (Milk Of Magnesia Liq) 30 ml Q12H PRN PO MILD - MODERATE CONSTIPATION; Start 03/11/17 at 02:45 Sennosides (Senokot) 17.2 mg Q12H PRN PO MODERATE - SEVERE CONSTIPATION Last administered on 03/12/17 14:48; Start 03/11/17 at 02:45 Bisacodyl (Dulcolax Supp) 10 mg DAILY PRN RECTAL SEVERE CONSITIPATION; Start at 02:45 Lactulose (Lactulose Liq) 30 ml DAILY PRN PO SEVERE CONSITIPATION; Start at 02:45 Potassium Chloride 40 meq 40 meq ONCE ONCE PO Last administered on 03/11/17 04:08; Start 03/11/17 at 02:45; Stop 03/11/17 at 02:57; Status DC Vancomycin HCl/ Sodium Chloride (Vancomycin Inj/ NS 500 ml Inj) 518 ml @ 250 mls/hr DAILY@04 IV Last administered on 03/11/17 05:12; Start 03/11/17 at 04: 00; Stop 03/11/17 at 07:00; Status DC Methylprednisolone Sodium Succinate (SoluMEDROL INJ) 40 mg Q6HR IV PUSH Last administered on 03/12/17 05:20; Start 03/11/17 at 06:00; Stop 03/12/17 at 09:52 ; Status DC Bumetanide 1 mg 1 mg DAILY PO Last administered on 03/14/17 08:08; Start 03/11 at 09:00 Vancomycin HCl/ Sodium Chloride (Vancomycin Inj/ NS 500 ml Inj) 517.5 ml @ 250 mls/hr Q24H IV Last administered on 03/12/17 04:20; Start 03/12/17 at 04:00; Stop 03/12/17 at 11:51; Status DC Miscellaneous Information SPECIFIC LAB TO BE DRAWN:[facility] DATE TO BE [facility].. ONCE ONCE .XX ; Start 03/14/17 at 09:45; Stop 03/14/17 at 09:45; Status DC Methylprednisolone Sodium Succinate 40 mg 40 mg Q8HR IV PUSH Last administered on 03/14/17 06:10; Start 03/12/17 at 14:00 Vancomycin HCl/ Sodium Chloride (Vancomycin Inj/ NS 500 ml Inj) 517.5 ml @ 250 mls/hr Q18H IV Last administered on 03/12/17t 21:44; Start 03/12/17 at 22:00; Stop 03/13/17 at 12:50; Status DC A/P Assessment and Plan A/P 1. acute respiratory failure due to COPD exacerbation and bibasilar pneumonia. continue with antibiotic - switch to po prednisone- walk test performed and the patient passed the walk test. 2. bacteremia/cholangitis ; one bottle of blood cultures with e-coli- switch to po antibiotics- repeated blood cultures negative. MRCP with dilatation of the common bile duct- surgery consult appreciated and recommended outpatient f/u. previuosly d/w GI. 3. Hypokalemia: replaced. 4. DVT Prophylaxis: SCD/teds. Discharge Planning dc home today. see med list. f/u; pcp and GI. d/w the patient. d/w microbiology. d/w the RN. time spent 31 min. Blayne Yao MD Mar 14, 2017 09:35
[2017-03-14] MEDS ORDERED: PHARMACY ORDERED LAB ONE (09:45)
== END 2017-03-14 10:34 | disposition home or self-care (01) | DRG 444 ==
LOC: NEPC 00:21 → NEDA 02:53 → N07A 04:22
PROVIDERS: ADMIT Internal Medicine; ATTEND Internal Medicine
DX: K83.0 Cholangitis (principal); J18.9 Pneumonia, unspecified organism; J96.21 Acute and chronic respiratory failure with hypoxia; I11.0 Hypertensive heart disease with heart failure; R78.81 Bacteremia; I50.9 Heart failure, unspecified; J44.0 Chronic obstructive pulmonary disease with (acute) lower respiratory infection; J44.1 Chronic obstructive pulmonary disease with (acute) exacerbation; R06.00 Dyspnea, unspecified; E87.6 Hypokalemia; N28.9 Disorder of kidney and ureter, unspecified; B96.20 Unspecified Escherichia coli [E. coli] as the cause of diseases classified elsewhere
CPT/HCPCS: 36600; 71010; 71275; 74181; 76377; 80053; 80076; 82435; 82550; 82565; 82805; 82947; 83605; 83880; 84132; 84295; 84484; 84520; 85007; 85025; 85027; 85610; 87040; 87149; 87186; 87205; 93005; 94620; 94640; 94664; 96365; 96375; J2270; J2405; J2543; J2920; J2930; J3370; J7030; J7040; Q9967